=== PATIENT | female | born 1980 | race Caucasian/White ===

== ENCOUNTER 2020-06-28 12:55 | Emergency (ER) | payer OTHER, SELFPAY ==
[2020-06-28 13:23] VITALS: BP 141/80; PULSE 90; RESP 18; TEMP 36.7; O2SAT 100; BMI 22.6
--- NOTE | 2020-06-28 13:32 | HMH.EDUTC ---
[facility] – [place] Disposition Clinical Impression: Encounter for laboratory testing for COVID-19 virus Disposition: Home, Self-Care Condition on Discharge: Good Instructions: Preventing the Spread of Coronavirus Discharge Instructions Additional Instructions: *Monitor Temp, Over the counter Motrin or Tylenol as directed/as needed Tylenol every 4 hours and Motrin every 6 hours (as long as your family doctor has told you that you can take it) for fever or pain. and straight to ER if unable to lower temp less than 101.0 after medication given Follow up IMMEDIATELY for new or worsening symptoms or no Noticeable improvement over the next 48-72 hours. 911 for difficulty breathing or swallowing You was tested for today for COVID19 your test result should be back later this evening, you may call back later this evening to see if your test results are back and the result You was given a handout with instructions for Self Quarantine and Self isolation for while you wait on test results and what to do if they are positive Referrals: Christ Arthur [Primary Care Provider] - As needed Time of Disposition: 13:34 Medical Decision Making - Clifford Inquiry Pt receiving controlled substance: No Clifford was queried for this patient: No Vital Signs: 06/28/20 13:23 Temperature 98.1 F Temperature Source Oral Pulse Rate [Radial] 90 Respiratory Rate 18 Blood Pressure [Right Arm] 141/80 H Blood Pressure Mean [Right Arm] 100 Blood Pressure Source [Right Arm] Automatic Cuff Blood Pressure Position [Right Arm] Sitting 02 Sat by Pulse Oximetry 100 Oxygen Delivery Method Room Air Orders (Tests/Meds): ORDERS Category Date Time Status Covid-19 Nasal PCR ([facility]) Routine Lab 06/28/20 13:10 Received [facility] – [place] HPI - General Stated complaint: wants covid test for employ Time Seen by Provider: 06/28/20 13:32 Mode of Arrival: Ambulatory Source of Information: Patient Limitations: No Limitations Description of Symptoms (Recalled from Triage Doc. by RN): wants covid test. HEENT Symptoms (Recalled from RN notes): No Resp Symptoms (Recalled from RN notes): No Skin Symptoms (Recalled from RN notes): No MS Symptoms (Recalled from RN notes): No Functional Status (Recalled from RN notes): wnl - History of Present Illness Provider Complaint: Patient state that she is starting a new job in [place] and they required her to come and get a COVID test before she can start work Denies any symptoms or complaints - Related Data Allergies Allergy/AdvReac Type Severity Reaction Status Date / Time INGREDIENT: NO KNOWN - NO Allergy Unknown Uncoded 08/26/17 15:03 KNOWN DRUG ALLERGY - Worker's Comp Is this a Worker's Comp case?: No [facility] History - Hepatitis A Screen Drug use history?: No High risk sexual behaviors?: No History of sexually transmitted infection?: No Currently employed?: No Childcare worker?: No Do you have indoor plumbing?: Yes Do you have electricity?: Yes Attestation statement:: This patient has been screened for Hepatitis A risk factors. I have reviewed the patient's past medical history: Yes - Social History Alcohol Intake: never Occupational Status: employed ROS Obtained: Yes All systems reviewed & no additional complaints, Yes Systems reviewed as appropriate & no additional complaints - Constitutional Constitutional: Reports system reviewed and no additional complaints, except as docu, Denies body ache, Denies chills, Denies fever(s), Denies headache(s) - ENT Ears, Nose, Mouth, and Throat: Reports system reviewed and no additional complaints, except as docu, Denies nasal congestion, Denies nasal discharge, Denies sore throat - Cardiovascular Cardiovascular: Reports system reviewed and no additional complaints, except as docu - Respiratory Respiratory: Yes system reviewed and no additional complaints, except as docu, No cough - Gastrointestinal Gastrointestingal: Reports: system reviewed and no additional complaints, ex
[2020-06-28 13:50] VITALS: BP 141/80; PULSE 90; RESP 18; TEMP 36.7; O2SAT 100
== END 2020-06-28 13:51 | disposition home or self-care (01) ==
PROVIDERS: Emergency Provider Nurse Practitioner; PCP Pediatrics
DX: Z20.828 Contact with and (suspected) exposure to other viral communicable diseases (principal)
CPT/HCPCS: 99201; U0003

== ENCOUNTER 2020-08-17 13:17 | Emergency (ER) | payer OTHER, SELFPAY ==
[2020-08-17 13:40] VITALS: BP 133/89; PULSE 93; RESP 14; TEMP 36.2; O2SAT 98; BMI 22.6
--- NOTE | 2020-08-17 13:50 | HMH.EDUTC ---
[facility] – [place] Disposition Clinical Impression: Exposure to COVID-19 virus Disposition: Home, Self-Care Condition on Discharge: Good Instructions: Preventing the Spread of Coronavirus Discharge Instructions Additional Instructions: Drink plenty of fluids. Take tylenol for pain or fever. Return if you begin to have difficulty breathing. Follow up with your regular doctor. GO TO THE ER FOR ANY WORSENING SYMPTOMS Referrals: PCP,No [Primary Care Provider] - Time of Disposition: 14:03 Medical Decision Making - Medical Records Medical records reviewed: No: I reviewed the patient's medical records. - Clifford Inquiry Pt receiving controlled substance: No Vital Signs: 08/17/20 13:40 Temperature 97.2 F L Temperature Source Oral Pulse Rate [Right Brachial] 93 H Respiratory Rate 14 Blood Pressure [Right Arm] 133/89 Blood Pressure Mean [Right Arm] 103 Blood Pressure Source [Right Arm] Automatic Cuff Blood Pressure Position [Right Arm] Sitting 02 Sat by Pulse Oximetry 98 Oxygen Delivery Method Room Air Orders (Tests/Meds): ORDERS Category Date Time Status Covid-19 Nasal PCR Sendout Jose Routine Lab 08/17/20 13:35 Ordered [facility] – [place] HPI - General Stated complaint: possible covid exposure Time Seen by Provider: 08/17/20 13:50 - History of Present Illness Provider Complaint: She was exposed to covid-19 by her son having it. She denies any symptoms. - Related Data Allergies Allergy/AdvReac Type Severity Reaction Status Date / Time No Known Allergies Allergy Verified 08/17/20 13:56 [facility] History - Hepatitis A Screen Attestation statement:: This patient has been screened for Hepatitis A risk factors. I have reviewed the patient's past medical history: Yes - Social History Alcohol Intake: never Occupational Status: employed ROS Obtained: Yes All systems reviewed & no additional complaints - Constitutional Constitutional: Reports system reviewed and no additional complaints, except as docu - Eyes Eyes: Reports system reviewed and no additional complaints, except as docu - ENT Ears, Nose, Mouth, and Throat: Reports system reviewed and no additional complaints, except as docu - Cardiovascular Cardiovascular: Reports system reviewed and no additional complaints, except as docu - Respiratory Respiratory: Yes system reviewed and no additional complaints, except as docu - Gastrointestinal Gastrointestingal: Reports: system reviewed and no additional complaints, except as docu Physical Exam - General General appearance: alert, in no apparent distress - Head Head exam: atraumatic, normocephalic, normal inspection - Eye Eye exam: Present: normal appearance, PERRL, EOMI - ENT ENT exam: Present: normal exam, normal oropharynx, mucous membranes moist, TM's normal bilaterally, normal external ear exam - Neck Neck exam: Present: normal inspection, full ROM, trachea midline. Absent: meningismus, lymphadenopathy - Chest Chest inspection: Present: normal inspection, symmetric chest wall rise. Absent: tenderness - Respiratory Respiratory exam: Present: normal lung sounds bilaterally. Absent: respiratory distress - Cardiovascular Cardiovascular exam: Present: regular rate, normal rhythm. Absent: JVD - Abdominal Exam Abdominal exam: Present: soft, normal bowel sounds. Absent: distention, tenderness, guarding - Extremities Exam Extremities exam: Present: normal inspection, full ROM, normal capillary refill. Absent: calf tenderness - Back Exam Back exam: Present: normal inspection. Absent: tenderness - Neurological Exam Neurological exam: Present: alert, oriented X3 - Psychiatric Psychiatric exam: Present: normal affect, normal mood - Skin Skin exam: Present: warm, dry, intact, normal color - Lymphatic Lymphatic Findings: no adenopathy
[2020-08-17 14:13] VITALS: BP 133/89; PULSE 93; RESP 14; TEMP 36.2; O2SAT 98
[2020-08-19 10:52] LABS: Covid-19 Nasal PCR Sendout Lex Not Detected
== END 2020-08-17 14:16 | disposition home or self-care (01) ==
PROVIDERS: Emergency Provider Nurse Practitioner Family
DX: Z20.828 Contact with and (suspected) exposure to other viral communicable diseases (principal)
CPT/HCPCS: 99201; U0004

== ENCOUNTER 2021-06-13 16:30 | Emergency (ER) | payer OTHER, SELFPAY ==
[2021-06-13 16:30] VITALS: BP 149/95; PULSE 81; RESP 18; TEMP 37; O2SAT 99; BMI 22.6
--- NOTE | 2021-06-13 16:49 | HMH.EDUTC ---
[facility] [place] Disposition Clinical Impression: Encounter for laboratory testing for COVID-19 virus Headache Qualifiers: Headache type: unspecified Headache chronicity pattern: unspecified pattern Intractability: not intractable Qualified Code(s): R51.9 - Headache, unspecified Disposition: Home, Self-Care Condition on Discharge: Good Instructions: DI for COVID-19 (Suspected or Confirmed ), Preventing the Spread of Coronavirus Discharge Instructions Additional Instructions: Go home and rest Over the counter Motrin may help with headache pain Follow up with Family Doctor and return if needed Straight to ER if any life threatening symptoms Return if needed Referrals: Christ Arthur [Primary Care Provider] - As needed Time of Disposition: 17:12 Medical Decision Making - Clifford Inquiry Pt receiving controlled substance: No Clifford was queried for this patient: No Vital Signs: 06/13/21 16:30 06/13/21 16:58 Temperature 98.6 F 98.6 F Temperature Source Oral Pulse Rate 81 Pulse Rate [Right Brachial] 81 Respiratory Rate 18 18 Blood Pressure 149/95 H Blood Pressure [Right Arm] 149/95 H Blood Pressure Mean [Right Arm] 113 Blood Pressure Source [Right Arm] Automatic Cuff Blood Pressure Position [Right Arm] Sitting 02 Sat by Pulse Oximetry 99 Oxygen Delivery Method Room Air Orders (Tests/Meds): ED MEDICATIONS Discontinued Medications Generic Name Dose Route Start Last Admin Trade Name Sabina PRN Reason Stop Dose Admin Ketorolac Tromethamine 60 mg 06/13/21 16:52 06/13/21 16:56 Ketorolac 60mg/2ml Vial IM 06/13/21 16:53 60 mg ONCE ONE Administration Medical Decision Narrative: Patient states that she has had a tubal Patient states that headache is gone after medication and she is feeling much better [facility] [place] HPI - General Stated complaint: Headache x 3 days Time Seen by Provider: 06/13/21 16:49 Mode of Arrival: Ambulatory Source of Information: Patient Limitations: No Limitations Description of Symptoms (Recalled from Triage Doc. by RN): PATIENT C/O WEAKNESS AND HEADACHE X 3 DAYS HEENT Symptoms (Recalled from RN notes): Yes Resp Symptoms (Recalled from RN notes): No Skin Symptoms (Recalled from RN notes): No MS Symptoms (Recalled from RN notes): No Functional Status (Recalled from RN notes): WNL - History of Present Illness Provider Complaint: Patient states that she is not sure if she has a migraine or she is getting sick States that she works at [employer] and she has had a headache for the last 3 days States that she has been taking Tylenol and it helps some but then the headache will come right back States that she has been feeling tired and achy wanted to get tested for COVID - Related Data Allergies Allergy/AdvReac Type Severity Reaction Status Date / Time No Known Allergies Allergy Verified 08/17/20 13:56 - Worker's Comp Is this a Worker's Comp case?: No [facility] History - Hepatitis A Screen Drug use history?: No High risk sexual behaviors?: No History of sexually transmitted infection?: No Currently employed?: No Childcare worker?: No Do you have indoor plumbing?: Yes Do you have electricity?: Yes Attestation statement:: This patient has been screened for Hepatitis A risk factors. I have reviewed the patient's past medical history: Yes - Social History Alcohol Intake: never Occupational Status: other ROS Obtained: Yes All systems reviewed & no additional complaints, Yes Systems reviewed as appropriate & no additional complaints - Constitutional Constitutional: Reports system reviewed and no additional complaints, except as docu, Reports body ache, Reports chills, Reports fatigue, Denies fever(s), Reports headache(s) - Eyes Eyes: Reports system reviewed and no additional complaints, except as docu, Denies blurry vision, Denies decreased night vision, Denies sensitivity to light, Denies eye pain, Denies photophobia - ENT Ears, Nose, Mouth, and Throat: Reports system
[2021-06-13 16:58] VITALS: BP 149/95; PULSE 81; RESP 18; TEMP 37; O2SAT 99
== END 2021-06-13 17:18 | disposition home or self-care (01) ==
PROVIDERS: Emergency Provider Nurse Practitioner; PCP Pediatrics
DX: Z20.822 Contact with and (suspected) exposure to COVID-19 (principal); R51.9 Headache, unspecified
CPT/HCPCS: 96372; 99202; C9803; G0463; U0003; U0005

== ENCOUNTER 2021-07-28 11:31 | Emergency (ER) | payer OTHER, SELFPAY ==
[2021-07-28 11:48] VITALS: BP 145/88; PULSE 94; RESP 18; TEMP 36.9; O2SAT 98; BMI 24.2
--- NOTE | 2021-07-28 12:33 | HMH.EDUTC ---
[facility] [place] – [place] Disposition Clinical Impression: Shingles Qualifiers: Herpes zoster complications: without complications Qualified Code(s): B02.9 - Zoster without complications Disposition: Home, Self-Care Condition on Discharge: Good Instructions: Shingles, DI for Shingles Additional Instructions: Drink plenty of fluids. Take tylenol or ibuprofen for pain or fever. Take the medications as directed. Follow up with your regular doctor. GO TO THE ER FOR ANY WORSENING SYMPTOMS Prescriptions: Ibuprofen [Ibuprofen 800mg Tablet] 800 mg PO Q8HP PRN #30 tab PRN Reason: Moderate Pain Transmission Status: Received by [id number] Acyclovir 800 mg PO 5XDAY 7 Days #35 tab Transmission Status: Received by [id number] predniSONE [Deltasone 10mg tablet] 10 mg PO DAILY 9 Days #21 tab Transmission Status: Received by [id number] Referrals: Provider,Referral, MD [Primary Care Provider] - Forms: Work/School Release Time of Disposition: 12:39 Medical Decision Making - Medical Records Medical records reviewed: No: I reviewed the patient's medical records. - Clifford Inquiry Pt receiving controlled substance: No Vital Signs: 07/28/21 11:48 07/28/21 12:37 Temperature 98.5 F 98.5 F Temperature Source Oral Pulse Rate 94 H Pulse Rate [Left] 94 H Respiratory Rate 18 18 Blood Pressure 145/88 H Blood Pressure [Right Arm] 145/88 H Blood Pressure Mean [Right Arm] 107 02 Sat by Pulse Oximetry 98 [facility] [place] [facility] [place] HPI - General Stated complaint: possible shingles Time Seen by Provider: 07/28/21 12:33 Mode of Arrival: Ambulatory Source of Information: Patient Limitations: No Limitations Description of Symptoms (Recalled from Triage Doc. by RN): pt presents with a painful rash on L arm down to ribs and under L breast HEENT Symptoms (Recalled from RN notes): No Resp Symptoms (Recalled from RN notes): No Skin Symptoms (Recalled from RN notes): Yes (rash on L arm down to ribs and under L breast) MS Symptoms (Recalled from RN notes): No Functional Status (Recalled from RN notes): na - History of Present Illness Provider Complaint: She states that for the past 3 days she has felt irritation on the left side of her upper back around to the side of her chest. Yesterday she began having a rash in that area. - Related Data Previous Rx's Medication Instructions Recorded Acyclovir 800 mg PO 5XDAY 7 Days #35 tab 07/28/21 Ibuprofen [Ibuprofen 800mg 800 mg PO Q8HP PRN #30 tab 07/28/21 Tablet] predniSONE [Deltasone 10mg tablet] 10 mg PO DAILY 9 Days #21 tab 07/28/21 Allergies Allergy/AdvReac Type Severity Reaction Status Date / Time No Known Allergies Allergy Verified 08/17/20 13:56 - Worker's Comp Is this a Worker's Comp case?: No [facility] History - Hepatitis A Screen Drug use history?: No High risk sexual behaviors?: No History of sexually transmitted infection?: No Currently employed?: No Childcare worker?: No Do you have indoor plumbing?: Yes Do you have electricity?: Yes Attestation statement:: This patient has been screened for Hepatitis A risk factors. I have reviewed the patient's past medical history: Yes - Social History Alcohol Intake: never Occupational Status: other ROS Obtained: Yes All systems reviewed & no additional complaints - Constitutional Constitutional: Reports chills, Denies fever(s), Reports poor appetite, Reports malaise - Eyes Eyes: Denies eye discharge - ENT Ears, Nose, Mouth, and Throat: Denies dizziness, Denies otalgia, Denies sore throat - Cardiovascular Cardiovascular: Denies chest pain - Respiratory Respiratory: Denies chest congestion, Denies cough, Denies dyspnea, Denies stridor, Denies wheezing - Gastrointestinal Gastrointestingal: Denies: abdominal pain, diarrhea, nausea, vomiting - Genitourinary Female Genitourinary: Denies dysuria, Denies urinary frequency, Denies urinary incontinence, Denies urinary hesitancy, Den
[2021-07-28 12:37] VITALS: BP 145/88; PULSE 94; RESP 18; TEMP 36.9
== END 2021-07-28 12:44 | disposition home or self-care (01) ==
PROVIDERS: Emergency Provider Nurse Practitioner Family
DX: B02.9 Zoster without complications (principal)
CPT/HCPCS: 99202; G0463

== ENCOUNTER 2021-10-25 09:04 | Emergency (ER) | payer OTHER, SELFPAY ==
[2021-10-25 09:30] VITALS: BMI 24.0
--- NOTE | 2021-10-25 09:38 | HMH.EDGENADL ---
ED Disposition Clinical Impression: Excessive vaginal bleeding Disposition: Home, Self-Care Condition on Discharge: Good Instructions: DI for Vaginal Bleeding Additional Instructions: See Dr. Santoyo in his office tomorrow at 9:20 AM. You must wear a mask in the office. Referrals: Christ Arthur [Primary Care Provider] - - Critical Care Critical Care Time: No Attestation: On 10/25/21, the high probability of a clinically significant, sudden or life threatening deterioration of the following system(s) required my full and direct attention, intervention and personal management. The time I documented below is in addition to time spent performing reported procedures but includes the following listed in this critical care notation. Medical Decision Making - Clifford Inquiry Pt receiving controlled substance: No Vital Signs: 10/25/21 09:39 Temperature 98.7 F Temperature Source Oral Pulse Rate [Left Radial] 80 Respiratory Rate 18 Blood Pressure [Right Arm] 118/78 Blood Pressure Mean [Right Arm] 91 Blood Pressure Source [Right Arm] Automatic Cuff Blood Pressure Position [Right Arm] Sitting 02 Sat by Pulse Oximetry 99 Oxygen Delivery Method Room Air - Lab Data Lab Results 10/25/21 09:33: Urine Color Yellow, Urine Appearance Clear, Urine pH 5.5, Ur Specific [place] >= 1.030, Urine Protein 2+, Urine Glucose (UA) Negative, Urine Ketones Negative, Urine Blood 3+, Urine Nitrate Positive, Urine Bilirubin Negative, Urine Urobilinogen 4.0, Ur Leukocyte Esterase Negative, Urine RBC Tntc, Urine WBC 3-5, Ur Squamous Epith Cells Occasional, Amorphous Sediment Trace, Urine Mucus Trace 10/25/21 09:49: WBC 6.0, RBC 4.03 L, Hgb 13.7, Hct 39.7, MCV 98.4, MCH 34.1 H, MCHC 34.6, RDW 12.7, Plt Count 260, MPV 7.3 L, Neut % (Auto) 68.9, Lymph % (Auto) 23.6, [place] % (Auto) 5.1, Eos % (Auto) 1.7, Baso % (Auto) 0.6, Neut # (Auto) 4.1, Lymph # (Auto) 1.4, [place] # (Auto) 0.3, Eos # (Auto) 0.1, Baso # (Auto) 0.0 10/25/21 09:49: Sodium 137, Potassium 3.6, Chloride 107, Carbon Dioxide 26, Anion Gap 7.6, BUN 11, Creatinine 0.80, Estimated Creat Clear 97, Estimated GFR 78, Est GFR ( Amer) 95, Glucose 96, Calcium 7.9 L, Total Bilirubin 0.5, AST 42 H, ALT 38, Alkaline Phosphatase 137 H, Total Protein 7.0, Albumin 4.0, Globulin 3.0, Albumin/Globulin Ratio 1.3 10/25/21 09:49: Serum HCG, Qual Negative Result diagrams: 10/25/21 09:49 10/25/21 09:49 Orders (Tests/Meds): ED MEDICATIONS Discontinued Medications Generic Name Dose Route Start Last Admin Trade Name Freq PRN Reason Stop Dose Admin Medroxyprogesterone Acetate 20 mg 10/25/21 11:25 Medroxyprogesterone Acetate 2.5mg Tablet PO 10/25/21 11:26 ONCE ONE ORDERS Category Date Time Status US transvaginal Stat Exams 10/25/21 10:40 Taken Thyroid Panel Stat Lab 10/25/21 09:49 Received - US Data US Images: Pelvis Findings Narrative: As per [facility] procedure, ultrasound report received from counter intelligence technician: Uterus upper limits of normal. Endometrium normal. Nabothian cysts of cervix. Hemorrhagic cyst left ovary. Actively bleeding. - Physician Consults Physician Consulted: Natanael Time: 11:20 Reason -: Gynocological Eval/Care Comment/Response: Give patient Provera 20 mg p.o. x1, have patient see him tomorrow in his office at 9:20 AM. General Adult HPI - General Stated complaint: female issues Time Seen by Provider: 10/25/21 09:38 - History of Present Illness HPI narrative: Complains of heavy vaginal bleeding that began yesterday. Denies having any pain. Passing clots. Using 1 pad per hour. Has never had vaginal bleeding is heavy. Last normal menses was in September 29. 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 Her glazier stained glass is Dr. Faizan Santoyo in [place], her oncologist surgeon is Dr. Madrigal at [facility]. She says she called Dr. Madrigal today but could not be seen for 4 weeks an
[2021-10-25 09:39] VITALS: BP 118/78; PULSE 80; RESP 18; TEMP 37.1; O2SAT 99; BMI 24.0
[2021-10-25 09:51] LABS: Microscopic, Urine URINE MICROSCOPIC (MICROSCOPIC)
[2021-10-25 09:59] LABS: Appearance,Urine CLEAR (Clear); Bilirubin,Urine Negative (Negative); Blood, Urine 3+ (Negative); Color,Urine YELLOW (Yellow); Glucose,Urine (UA) Negative (Negative); Ketones,Urine Negative (Negative); Leukocyte Esterase,Urine Negative (Negative); Nitrate,Urine POSITIVE (Negative); PH,Urine 5.5 (5.0-8.5); Protein,Urine 2+ (Negative); Specific Gravity, Urine >= 1.030 (1.005-1.030)
[2021-10-25 10:14] LABS: Basophils % 0.6 % (0.1-2.0); Eosinophils # 0.1 K/mm3 (0.0-0.4); Eosinophils % 1.7 % (0.1-12.0); Hematocrit 39.7 % (37.0-47.0); Hemoglobin 13.7 g/dL (12.2-16.2); Lymphocytes # 1.4 K/mm3 (0.7-4.5); Lymphocytes % 23.6 % (10-50); Mean Corpuscular HGB Conc 34.6 g/dL (31.8-35.4); Mean Corpuscular Hemoglobin 34.1 pg (27.0-31.2); Mean Corpuscular Volume 98.4 fl (81-99); Mean Platelet Volume 7.3 fl (7.4-10.4); Monocytes # 0.3 K/mm3 (0.1-1.0); Monocytes % 5.1 % (1.7-9.3); Neutrophils # 4.1 K/mm3 (1.8-7.8); Neutrophils % 68.9 % (37.0-80.0); Platelet Count 260 K/mm3 (142-424); Red Blood Count 4.03 M/mm3 (4.20-5.40); Red Cell Distribution Width 12.7 % (11.5-17.5)
[2021-10-25 10:15] LABS: Amorphous Sediment,Urine Trace /lpf; Mucus,Urine Trace /lpf; RBC,Urine TNTC #/hpf (0-3); Squamous Epithelial Cell,Urine Occasional #/hpf (0-5)
[2021-10-25 10:22] LABS: Chloride 107 mmol/L (98-107); Potassium 3.6 mmoL/L (3.5-5.1); Sodium 137 mmol/L (136-145)
[2021-10-25 10:25] LABS: Alanine Aminotransferase 38 U/L (12-78); Albumin/Globulin Ratio 1.3 (1.1-1.8); Alkaline Phosphatase 137 U/L (38-126); Anion Gap 7.6 mEq/L (5-15); Aspartate Amino Transferase 42 U/L (14-36); Bilirubin,Total 0.5 mg/dl (0.2-1.3); Blood Urea Nitrogen 11 mg/dl (7-17); Carbon Dioxide 26 mmol/L (22.0-30.0); Creatinine Clearance Estimated 97 mL/min (50-200); Estimated Glomerular Filt Rate 78 ml/min (>60); GFR (African American) 95 ML/MIN (>60)
[2021-10-25 10:26] LABS: Calcium 7.9 mg/dl (8.4-10.2); Glucose 96 mg/dl (74-100)
[2021-10-25 10:39] LABS: HCG Qualitative, Serum Negative (Negative)
--- NOTE | 2021-10-25 10:40 | US_ITS ---
FINAL REPORT CLINICAL HISTORY: heavy vaginal bleeding-- x 2 days-- pt had rt ov removed FINDINGS: Transvaginal sonographic images of the pelvis were obtained. The uterus measures 9.3 x 4.8 x 6.4. The endometrium measures 5 mm, which is within normal limits. No uterine mass is identified. The right ovary is surgically absent. The left ovary measures 5.1 x 4.0 x 4.0 cm in length. There is a complex cystic mass in the left ovary measuring 3.7 cm which may represent a complex cyst or endometrioma. There is no significant free fluid. IMPRESSION: Complex cystic mass in the left ovary may represent a complex cyst or endometrioma. Reviewed, Interpreted and Dictated by Juanpablo Cordova III, MD Transcribed by Laura Vaughn Authenticated by Juanpablo Cordova III, MD on 10/25/2021 01:44:33 PM [facility]
--- NOTE | 2021-10-25 11:17 | PC.NURSE ---
calling dr nicola joya md to speak with
--- NOTE | 2021-10-25 11:18 | PC.NURSE ---
speaking to dr petersen
[2021-10-25 11:46] VITALS: BP 121/74; PULSE 76; RESP 17; TEMP 37; O2SAT 97
[2021-10-25 11:49] LABS: Triiodothryronine (T3) Uptake 30 % (23.5-40.5)
[2021-10-25 11:50] LABS: T4 (Thyroxine) 10.1 ug/dl (5.53-11.0)
[2021-10-25 12:03] LABS: Thyroid Stimulating Hormone 3.06 uIU/mL (0.465-4.68)
== END 2021-10-25 11:52 | disposition home or self-care (01) ==
PROVIDERS: Emergency Provider Emergency Medicine; PCP Pediatrics
DX: N92.4 Excessive bleeding in the premenopausal period (principal)
CPT/HCPCS: 76830; 80053; 81001; 84436; 84443; 84479; 84703; 85025; 99283

== ENCOUNTER 2021-12-19 11:26 | Emergency (ER) | payer OTHER, SELFPAY ==
[2021-12-19 11:51] VITALS: BP 121/74; PULSE 88; RESP 19; TEMP 36.9; O2SAT 95; BMI 24.0
--- NOTE | 2021-12-19 12:06 | HMH.EDUTC ---
[facility] Disposition Clinical Impression: Tendinopathy of left shoulder Left shoulder pain Qualifiers: Chronicity: acute Qualified Code(s): M25.512 - Pain in left shoulder Disposition: Home, Self-Care Condition on Discharge: Good Instructions: DI for Shoulder Tendinopathy Additional Instructions: Go home and rest. It would be best if you rested tomorrow too. No heavy lifting with your right arm for the next few days. Take the oral medications as directed. Follow up with your regular doctor. GO TO THE ER FOR ANY WORSENING SYMPTOMS OR CONCERN, ESPECIALLY BOWEL OR BLADDER ISSUES, SADDLE AREA NUMBNESS, FEVER, ETC Rest the extremity, Elevate the extremity as tolerated while you are resting. Prescriptions: methylPREDNISolone [Medrol] 4 mg PO DIRECTED 6 Days #21 packet Transmission Status: Pending to [id number] Referrals: Christ Arthur [Primary Care Provider] - Musa Boyd MD [Staff Physician] - Forms: Work/School Release Time of Disposition: 12:29 Medical Decision Making - Medical Records Medical records reviewed: No: I reviewed the patient's medical records. - Clifford Inquiry Pt receiving controlled substance: No Vital Signs: 12/19/21 11:51 Temperature 98.4 F Temperature Source Oral Pulse Rate [Left] 88 Respiratory Rate 19 Blood Pressure [Right Arm] 121/74 Blood Pressure Mean [Right Arm] 89 02 Sat by Pulse Oximetry 95 [facility] HPI - General Stated complaint: lt shoulder pain Time Seen by Provider: 12/19/21 12:06 Mode of Arrival: Ambulatory Source of Information: Patient Limitations: No Limitations Description of Symptoms (Recalled from Triage Doc. by RN): pt c/o L shoulder pain. pt states she recently started a job and mops alot. pt believes she has irritated it from the new repetitive activity. HEENT Symptoms (Recalled from RN notes): No Resp Symptoms (Recalled from RN notes): No Skin Symptoms (Recalled from RN notes): No MS Symptoms (Recalled from RN notes): Yes Functional Status (Recalled from RN notes): wnl - History of Present Illness Provider Complaint: She states that for the past 3 days she has had right elbow and shoulder pain and stiffness. She denies any recent injury. She thinks that she has been moping and raking and it has irritated her shoulder. - Related Data Previous Rx's Medication Instructions Recorded Acyclovir 800 mg PO 5XDAY 7 Days #35 tab 07/28/21 Ibuprofen [Ibuprofen 800mg 800 mg PO Q8HP PRN #30 tab 07/28/21 Tablet] predniSONE [Deltasone 10mg tablet] 10 mg PO DAILY 9 Days #21 tab 07/28/21 methylPREDNISolone [Medrol] 4 mg PO DIRECTED 6 Days #21 12/19/21 packet Allergies Allergy/AdvReac Type Severity Reaction Status Date / Time No Known Allergies Allergy Verified 08/17/20 13:56 - Worker's Comp Is this a Worker's Comp case?: No [facility] History - Hepatitis A Screen Drug use history?: No High risk sexual behaviors?: No History of sexually transmitted infection?: No Currently employed?: No Childcare worker?: No Do you have indoor plumbing?: Yes Do you have electricity?: Yes Attestation statement:: This patient has been screened for Hepatitis A risk factors. I have reviewed the patient's past medical history: Yes - Social History Alcohol Intake: never Occupational Status: other ROS Obtained: Yes All systems reviewed & no additional complaints - Constitutional Constitutional: Reports as per HPI - Eyes Eyes: Denies eye discharge - ENT Ears, Nose, Mouth, and Throat: Reports as per HPI - Cardiovascular Cardiovascular: Denies chest pain - Respiratory Respiratory: Denies shortness of breath - Gastrointestinal Gastrointestingal: Reports: as per HPI Physical Exam - General General appearance: alert, in no apparent distress - Head Head exam: atraumatic, normocephalic, normal inspection - Eye Eye exam: Present: normal appearance, PERRL, EOMI - ENT ENT exam: Present: normal exam, nor
[2021-12-19 12:32] VITALS: BP 121/74; PULSE 88; RESP 19; TEMP 36.9
== END 2021-12-19 12:33 | disposition home or self-care (01) ==
PROVIDERS: Emergency Provider Nurse Practitioner Family; PCP Pediatrics
DX: M75.02 Adhesive capsulitis of left shoulder (principal); X50.3XXA Overexertion from repetitive movements, initial encounter
CPT/HCPCS: 99212; G0463

== ENCOUNTER 2022-03-26 08:29 | Emergency (ER) | payer OTHER, SELFPAY ==
[2022-03-26 08:30] VITALS: BP 131/85; PULSE 77; RESP 16; TEMP 36.8; O2SAT 99; BMI 21.6
--- NOTE | 2022-03-26 08:54 | PC.NURSE ---
Notified radiology of xray order; spoke with Fadia
--- NOTE | 2022-03-26 08:54 | XR_ITS ---
FINAL REPORT CLINICAL HISTORY: pain FINDINGS: RIGHT KNEE Two views of the right knee were obtained. There is no evidence of fracture or dislocation. The bony alignment is normal. The joint spaces are preserved. There is no evidence of joint effusion. No localized soft tissue abnormality is identified. IMPRESSION: No acute abnormality identified. Reviewed, Interpreted and Dictated by Juanpablo Cordova III, MD Transcribed by Nandini Betts Authenticated and [facility]
[2022-03-26 09:00] VITALS: BP 124/84; PULSE 67; O2SAT 99
--- NOTE | 2022-03-26 09:01 | HMH.EDGENADL ---
ED Disposition Clinical Impression: Knee strain Qualifiers: Encounter type: initial encounter Laterality: right Qualified Code(s): S86.911A - Strain of unspecified muscle(s) and tendon(s) at lower leg level, right leg, initial encounter Strain of calf muscle Qualifiers: Encounter type: initial encounter Laterality: right Qualified Code(s): S86.811A - Strain of other muscle(s) and tendon(s) at lower leg level, right leg, initial encounter Disposition: Home, Self-Care Condition on Discharge: Good Instructions: DI for Calf Muscle Strain, DI for Knee Pain Additional Instructions: Continue ice 20 minutes 4-5 times a day. Ibuprofen as prescribed. Follow-up with orthopedics, Dr. Boyd, call for appointment. Prescriptions: Ibuprofen [Ibuprofen 600mg Tab] 600 mg PO Q6HP PRN #20 tab PRN Reason: Moderate Pain Transmission Status: Pending to [id number] Referrals: Christ Arthur [Primary Care Provider] - Musa Boyd MD [Staff Physician] - Forms: Work/School Release - Critical Care Critical Care Time: No Attestation: On , the high probability of a clinically significant, sudden or life threatening deterioration of the following system(s) required my full and direct attention, intervention and personal management. The time I documented below is in addition to time spent performing reported procedures but includes the following listed in this critical care notation. Medical Decision Making - Clifford Inquiry Pt receiving controlled substance: No Vital Signs: 03/26/22 08:30 03/26/22 09:00 03/26/22 10:00 Temperature 98.2 F Temperature Source Oral Pulse Rate 67 65 Pulse Rate [Left Radial] 77 Respiratory Rate 16 Blood Pressure 124/84 110/67 Blood Pressure [Right Arm] 131/85 Blood Pressure Mean 99 81 Blood Pressure Mean [Right Arm] 100 Blood Pressure Source [Right Arm] Automatic Cuff Blood Pressure Position [Right Arm] Sitting 02 Sat by Pulse Oximetry 99 99 96 Oxygen Delivery Method Room Air Orders (Tests/Meds): ORDERS Category Date Time Status Knee XR right 2 views [XR knee RT 2V] Stat Exams 03/26/22 08:54 Taken Tibia/fibula XR right 2 views [XR tibia fibula RT 2V] Exams 03/26/22 09:06 Taken Stat - Radiology Data #1 Image(s): Knee, Tib/Fib Image Reviewed: Yes I reviewed the patient's radiology image Preliminary Findings: Normal/NAD - US Data US Images: Lower Extremity Findings Narrative: As per [facility] procedure, doppler report received from visitor services technician: Negative Medical Decision Narrative: No findings of DVT on Doppler. She has musculoskeletal knee and calf pain. She says it is impairing her ability to work. 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 We discussed work restrictions. She declines restricted work such as sitting job only and request that I just give her a note to be off work today. She will be given orthopedic referral. Continue ice. Ibuprofen as prescribed. General Adult HPI - General Chief complaint: PAIN Stated complaint: Right knee pain Time Seen by Provider: 03/26/22 09:02 Mode of Arrival: Ambulatory Limitations: No Limitations Description of Symptoms (Recalled from ER Triage Doc. by RN): c/o right knee pain and back calf pain that started . Pt started working at [employer] and walking more than usual and she noticed it hurting after this. Denies any injury - History of Present Illness HPI narrative: 5-day history of pain in her right knee and right calf. Right knee feels a little swollen. Her calf feels tight, but no swelling of the lower leg noted. No injury. She recently started a job with [employer] and has been doing a lot of physical activity. No previous knee problems. She has used ice, no medications taken. No recent surgery, travel, hospitalizations. No history of thromboembolic disease. - Related Data Previous Rx's Medication Instructions Recorded Acycl
--- NOTE | 2022-03-26 09:03 | PC.NURSE ---
ED MD AT BEDSIDE FOR EVALUATION
--- NOTE | 2022-03-26 09:06 | XR_ITS ---
FINAL REPORT CLINICAL HISTORY: pain FINDINGS: RIGHT TIBIA FIBULA Two views were obtained. There is no acute fracture or dislocation. The joint spaces appear normal. No soft tissue abnormality is identified. IMPRESSION: No acute process. Reviewed, Interpreted and Dictated by Juanpablo Cordova III, MD Transcribed by Lu Sinha Authenticated and . [facility]
--- NOTE | 2022-03-26 09:06 | CA_ITS ---
FINAL REPORT TECHNIQUE: Color Doppler, duplex Doppler and compression sonography of the right lower extremity venous system was performed. CLINICAL HISTORY: calf pain, Ant/mediallower knee pain after starting [employer] job FINDINGS: There is no evidence of deep venous thrombosis from the level of the groin to the calf. The veins are patent and compressible. IMPRESSION: No evidence of deep venous thrombosis right lower extremity. Reviewed, Interpreted and Dictated by Juanpablo Cordova III, MD Transcribed by Nandini Betts Authenticated and [facility]
--- NOTE | 2022-03-26 09:07 | PC.NURSE ---
pt ambulatory to xray with rehabilitation tech without complications
--- NOTE | 2022-03-26 09:14 | PC.NURSE ---
pt ambulatory back over to xray for tib/fib views; no complications
--- NOTE | 2022-03-26 09:16 | PC.NURSE ---
pt back to ED room 10. pt aware she is awaiting to get a venous doppler scan. guitar technician is aware of order
--- NOTE | 2022-03-26 09:20 | PC.NURSE ---
echo lab here for doppler
--- NOTE | 2022-03-26 09:28 | PC.NURSE ---
negative doppler per tech
[2022-03-26 10:00] VITALS: BP 110/67; PULSE 65; O2SAT 96
--- NOTE | 2022-03-26 10:06 | PC.NURSE ---
Rounded on patient; patient aware that we are still waiting on imaging scans to be read by Radiologist. She has no needs at this time. Pt is resting on bed.
--- NOTE | 2022-03-26 10:13 | PC.NURSE ---
ED MD AT BEDSIDE TO [facility] AND UPDATE ON POC.
[2022-03-26 10:21] VITALS: BP 110/67; PULSE 65; RESP 16; TEMP 36.8; O2SAT 99
[2022-03-26 10:23] VITALS: BP 110/67; PULSE 62; RESP 18; TEMP 36.7; O2SAT 100
== END 2022-03-26 10:25 | disposition home or self-care (01) ==
PROVIDERS: Emergency Provider Emergency Medicine; PCP Pediatrics
DX: S86.911A Strain of unspecified muscle(s) and tendon(s) at lower leg level, right leg, initial encounter (principal); S86.811A Strain of other muscle(s) and tendon(s) at lower leg level, right leg, initial encounter
CPT/HCPCS: 73560; 73590; 93971; 99284

== ENCOUNTER 2024-06-20 15:41 | Emergency (ER) | payer OTHER, SELFPAY ==
[2024-06-20 16:40] VITALS: BP 147/89; PULSE 95; RESP 20; TEMP 36.8; O2SAT 98; BMI 24.9
--- NOTE | 2024-06-20 17:15 | ED_ITS ---
Discharge Plan Disposition Patient Disposition: Home, Self-Care Prescriptions Prescriptions: No Action No Known Home Medications Referrals Follow up/Referrals: Provider,Referral, MD [Primary Care Provider] - See instructions Activity Restrictions/Add. Instructions Additional Instructions/Restrictions: Talk to family doctor regarding this visit to the emergency talk to your family doctor regarding this visit to the emergency department and right sided thyroid nodule. TSH today was 39, T4 6.4. This is concerning for subclinical hypothyroidism as well. Talk to your family doctor about ultrasound of your thyroid for further definitive diagnosis.If you have any worsening of your condition or any other concerning signs or symptoms, return to the emergency department or your primary care doctor for further evaluation. Clinical Impressions Clinical Impression: Cold thyroid nodule, Subclinical hypothyroidism Print Language Print Language: Kiswahili Discharge ED Provider: Cresencio Betancur [facility] HPI General Chief complaint: Recheck/Abnormal Lab/Rx Stated complaint: knot on throat Mode of Arrival: Ambulatory Source of Information: Patient Limitations: No Limitations Time Seen by Provider: 06/20/24 17:15 Description of Symptoms (Recalled from Triage Doc. by RN): PATIENT C/O LUMP TO RIGHT SIDE OF NECK/THROAT AREA THAT SHE NOTICED THIS MORNING HEENT Symptoms (Recalled from RN notes): Yes Resp Symptoms (Recalled from RN notes): No Skin Symptoms (Recalled from RN notes): No MS Symptoms (Recalled from RN notes): No Functional Status (Recalled from RN notes): WNL History of Present Illness Provider Complaint: Patient states she woke up this morning and noticed it felt weird when she swallowed and hurt a little bit States that she felt her neck and noticed she had a hard lump on the side of her neck beside her rodriguez apple that she hasnt noticed States that she notices it more if she leans her head back it just feels uncomfortable Denies voice changes, states she can eat ok but hurts sometimes and feels weird when she swallows Related Data Home Medications ?Medication ?Instructions ?Recorded ?Confirmed No Known Home Medications 06/20/24 06/20/24 Allergies Allergy/AdvReac Type Severity Reaction Status Date / Time No Known Allergies Allergy Verified 06/20/24 17:36 Worker's Comp Is this a Worker's Comp case?: No [facility] Disclaimer: The information contained in this section may have been updated after the patient was seen, as this information can be updated by other users. Surgical History (Updated 06/20/24 @ 16:50 by Nathalia Wheeler RN) History of hysterectomy Social History Smoking Status: Current every day smoker alcohol intake: never current occupational status: other Travel in the last 8 weeks: None ROS Obtained: Yes All systems reviewed & no additional complaints except as documented and Yes Systems reviewed as appropriate & no additional complaints except as documented Constitutional Constitutional: Reports system reviewed and no additional complaints, except as documented and Reports as per HPI ENT Ears, Nose, Mouth, and Throat: Reports system reviewed and no additional complaints, except as documented and Reports as per HPI Comments: swollen area on right side of neck Cardiovascular Cardiovascular: Reports system reviewed and no additional complaints, except as documented and Reports as per HPI Respiratory Respiratory: Reports system reviewed and no additional complaints, except as documented and Reports as per HPI Gastrointestinal Gastrointestingal: Reports system reviewed and no additional complaints, except as documented and as per HPI Physical Exam General General appearance: alert and in no apparent distress Neck Neck exam: Present tenderness Expanded Neck Exam Neck image: 2 1. swollen hard area noted no redness, states noticed it this am Respiratory Respiratory exam: Present normal lung sounds bilaterally; Absent respiratory distress or wheezes Cardiovascular Cardiovascular exam: Present regular rate, normal rhythm and normal heart sounds Neurological Exam Neurological exam: Present alert, oriented X3 and normal gait Medical Decision Making Medical Records Screening: Per USPSTF and CDC recommendations, given the prevalence of disease in our region, it is our hospital?s policy to screen for HIV and viral Hepatitis for all patients aged 18 and over and those with ongoing risk factors. Clifford Inquiry Pt receiving controlled substance: No Clifford was queried for this patient: No Vital Signs: 06/20/24 16:40 Temperature 98.3 F Temperature Source Oral Pulse Rate [Left Brachial] 95 H Respiratory Rate 20 Blood Pressure [Left Arm] 147/89 H Blood Pressure Mean [Left Arm] 108 Blood Pressure Source [Left Arm] Automatic Cuff Blood Pressure Position [Left Arm] Sitting 02 Sat by Pulse Oximetry 98 Oxygen Delivery Method Room Air Lab Data 06/20/24 17:33 06/20/24 17:33 Medical Decision Narrative: Patient states she noticed large lump like area on the right side of her neck this am when it felt weird when she swallowed and she touched her neck, States she hadnt noticed area before, denies known thyroid issues denies voice changes, Denies sore throat and denies trouble eating just uncomfortable at times when she swallows or bends her head back, discussed with patient and will transfer to the ED for furhter work up and evaluation
[2024-06-20 17:27] VITALS: BP 146/105; PULSE 101; O2SAT 98
[2024-06-20 17:30] VITALS: BP 146/105; BP 147/103; PULSE 104; PULSE 96; RESP 14; TEMP 36.8; O2SAT 99; BMI 24.8
--- NOTE | 2024-06-20 17:32 | CT_ITS ---
PROCEDURE INFORMATION: Exam: CT Neck With Contrast Exam date and time: 06/20/2024 5:48 PM Age: 44 years old Clinical indication: Mass, lump, or swelling in neck; Right; Additional info: Right thyroid nodule and submental lad. R/O malig TECHNIQUE: Imaging protocol: Computed tomography of the neck with contrast. Radiation optimization: All CT scans at this facility use at least one of these dose optimization techniques: automated exposure control; mA and/or kV adjustment per patient size (includes targeted exams where dose is matched to clinical indication); or iterative reconstruction. Contrast material: ISOVUE; Contrast volume: 75 ml; Contrast route: IV; COMPARISON: No relevant prior studies available. FINDINGS: Salivary glands: Normal. Glands are normal in size. Pharynx: Unremarkable. No significant tonsillar enlargement. Prevertebral and retropharyngeal spaces: Unremarkable. Larynx: Unremarkable. Epiglottis is normal. Thyroid: Enlarged and heterogeneous thyroid gland. Trachea: Visualized trachea is unremarkable. Lungs: Unremarkable as visualized. Lymph nodes: No pathologically enlarged lymph nodes by short axis measurement criteria. 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 This is to the left of midline. Soft tissues: Unremarkable. No significant soft tissue swelling. IMPRESSION: 1. Enlarged and heterogeneous thyroid gland. 2. 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 3. No pathologic lymphadenopathy.
--- NOTE | 2024-06-20 17:46 | HMH.EDGENADL ---
Discharge Plan Disposition Patient Disposition: Home, Self-Care Prescriptions Prescriptions: No Action No Known Home Medications Referrals Follow up/Referrals: Provider,Referral, MD [Primary Care Provider] - See instructions Activity Restrictions/Add. Instructions Additional Instructions/Restrictions: Talk to family doctor regarding this visit to the emergency talk to your family doctor regarding this visit to the emergency department and right sided thyroid nodule. TSH today was 39, T4 6.4. This is concerning for subclinical hypothyroidism as well. Talk to your family doctor about ultrasound of your thyroid for further definitive diagnosis.If you have any worsening of your condition or any other concerning signs or symptoms, return to the emergency department or your primary care doctor for further evaluation. Clinical Impressions Clinical Impression: Cold thyroid nodule, Subclinical hypothyroidism Print Language Print Language: Chinese Discharge ED Provider: Cresencio Betancur General Adult HPI General Chief complaint: Recheck/Abnormal Lab/Rx Stated complaint: knot on throat Time Seen by Provider: 06/20/24 17:15 Mode of Arrival: Ambulatory Source of Information: Patient Limitations: No Limitations Description of Symptoms (Recalled from ER Triage Doc. by RN): pt states she noticed a swollen area on her neck this am. pt presents with a R anterior area around her thyroid that is swollen and dense. pt denies any other symptoms. pt is unsure how long it has been present. History of Present Illness HPI narrative: Please note that above description of symptoms, in this electronic medical record under categorization of recalled from ER triage doctor by RN are reflective of an initial nursing assessment, however, is not reflective of my full history and physical exam that was personally taken and clarified. Consequentially, this preceding description of symptoms, which may include the patient's categorized chief complaint in the EMR, do not reflect my personal clinical impression, and the ultimate description of history of present illness and patient stated complaints should be deferred to this section of the note. Unless stated otherwise or congruent with this section of the note, additional signs, symptoms, or incongruence should be interpreted as inaccurate with my clinical impression. Related Data Home Medications ?Medication ?Instructions ?Recorded ?Confirmed No Known Home Medications 06/20/24 06/20/24 Allergies Allergy/AdvReac Type Severity Reaction Status Date / Time No Known Allergies Allergy Verified 06/20/24 17:36 [facility] Disclaimer: The information contained in this section may have been updated after the patient was seen, as this information can be updated by other users. Surgical History (Updated 06/20/24 @ 16:50 by Nathalia Wheeler RN) History of hysterectomy Social History Smoking Status: Current every day smoker alcohol intake: never current occupational status: other Travel in the last 8 weeks: None Other Medical History Have you received the Flu Vaccine for this season: No Have you received the Pneumonia Vaccine: No ROS Obtained: Yes All systems reviewed & no additional complaints except as documented Physical Exam General General appearance: alert and in no apparent distress Head Head exam: atraumatic and normocephalic Eye Eye exam: Present normal appearance, PERRL and EOMI ENT ENT exam: Present other (per MDM) Neck Neck exam: Present normal inspection, full ROM and trachea midline Respiratory Respiratory exam: Present normal lung sounds bilaterally; Absent respiratory distress, wheezes, stridor, accessory muscle use or prolonged expiratory phase Cardiovascular Cardiovascular exam: Present other (Pulses equal symmetric in upper and lower extremities) Abdominal Exam Abdominal exam: Present soft; Absent distention, tenderness or pulsatile mass Extremities Exam Extremities exam: Absent edema Neurological Exam Neurological exam: Present alert, oriented X3 and CN II-XII intact; Absent motor sensory deficit Skin Skin exam: Present warm and dry; Absent diaphoresis or erythema Medical Decision Making Medical Records Medical records reviewed: Yes I reviewed the patient's medical records. Screening: Per USPSTF and CDC recommendations, given the prevalence of disease in our region, it is our hospital?s policy to screen for HIV and viral Hepatitis for all patients aged 18 and over and those with ongoing risk factors. Clifford Inquiry Pt receiving controlled substance: No Clifford was queried for this patient: No Vital Signs: 06/20/24 16:40 06/20/24 17:27 06/20/24 17:30 Temperature 98.3 F 98.3 F Temperature Source Oral Oral Pulse Rate 101 H Pulse Rate [Left Brachial] 95 H 104 H Respiratory Rate 20 14 Blood Pressure 146/105 H Blood Pressure [Left Arm] 147/89 H 146/105 H Blood Pressure Mean [Left Arm] 108 118 Blood Pressure Source [Left Arm] Automatic Cuff Automatic Cuff Blood Pressure Position [Left Arm] Sitting Sitting 02 Sat by Pulse Oximetry 98 98 99 Oxygen Delivery Method Room Air Room Air Room Air 06/20/24 17:30 06/20/24 18:00 06/20/24 18:30 Temperature Temperature Source Pulse Rate 96 H 80 88 Pulse Rate [Left Brachial] Respiratory Rate Blood Pressure 147/103 H 148/95 H 152/105 H Blood Pressure [Left Arm] Blood Pressure Mean [Left Arm] Blood Pressure Source [Left Arm] Blood Pressure Position [Left Arm] 02 Sat by Pulse Oximetry 99 99 99 Oxygen Delivery Method Room Air Room Air Lab Data Lab Results 06/20/24 17:33: WBC 8.9, RBC 4.98, Hgb 16.5 H, Hct 47.7 H, MCV 95.7, MCH 33.2 H, MCHC 34.7, RDW 13.5, Plt Count 374, MPV 7.2 L, Neut % (Auto) 69.0, Lymph % (Auto) 23.3, [place] % (Auto) 4.9, Eos % (Auto) 1.5, Baso % (Auto) 1.4, Neut # (Auto) 6.1, Lymph # (Auto) 2.1, [place] # (Auto) 0.4, Eos # (Auto) 0.1, Baso # (Auto) 0.1, Sodium 140, Potassium 3.4 L, Chloride 106, Carbon Dioxide 27, Anion Gap 10.4, BUN 5 L, Creatinine 0.80, Estimated Creat Clear 97, Estimated GFR 77, Est GFR ( Amer) 93, Glucose 101 H, Calcium 9.3, Total Bilirubin 0.5, AST 29, ALT 23, Alkaline Phosphatase 140 H, Total Protein 9.3 H D, Albumin 4.6, Globulin 4.7 H, Albumin/Globulin Ratio 1.0 L, TSH 39.00 H, Thyroxine (T4) 6.4 06/20/24 17:33 06/20/24 17:33 Orders (Tests/Meds): ED MEDICATIONS Discontinued Medications Generic Name Dose Route Start Last Admin Trade Name Freq PRN Reason Stop Dose Admin Iopamidol 75 ml 06/20/24 17:50 06/20/24 17:50 Iopamidol-370 (76%);100ml Bottle IV 06/20/24 17:51 75 ml ONCE ONE Administration Sodium Chloride 10 ml 06/20/24 17:50 06/20/24 17:50 Sodium Chloride 0.9% 10ml Syr (Rad Only) IV 06/20/24 17:51 10 ml ONCE ONE Administration ORDERS Category Date Time Status CT soft tissue neck w con Stat Cat Scan 06/20/24 17:32 Completed CBC w/Auto Diff [Complete Blood Count Auto Diff] Stat Lab 06/20/24 17:33 Completed CMP [Comprehensive Metabolic Panel] Stat Lab 06/20/24 17:33 Completed HIV (1&2) Antibody Rapid Stat Lab 06/20/24 17:33 Received Hep C Ab with Reflex to RNA Stat Lab 06/20/24 17:33 Received T4 (Thyroxine) Stat Lab 06/20/24 17:33 Completed TSH [Thyroid Stimulating Hormone] Stat Lab 06/20/24 17:33 Completed Medical Decision Narrative: 44-year-old female long smoking history with no other medical problems presenting with right-sided neck swelling. She noticed it today. Does not know if it has been present before this. Is nontender, associated with a feeling of difficulty swallowing, but tolerating p.o. intake without issue including liquids and solids. No fevers or chills, night sweats, voice changes, range of motion of neck difficulties, chest pain, or any other concerns. History was obtained via conversation with patient. On arrival, patient hemodynamically stable, alert, oriented x4, appropriate, GCS 15, moving all extremities spontaneously, pupils equal and reactive to light. Full physical exam performed and significant for well-appearing female no acute distress. Lungs are clear. Patient has right sided neck swelling concerning for thyroid nodule versus thyroid mass. She also has submental lymphadenopathy that is firm and fixed, nontender. No stridor, abnormal findings otherwise. No evidence of tonsillitis, exudate, pharyngeal erythema, uvular deviation, palatal swelling, trismus, external neck swelling, submental induration, dental abscess, angioedema, or other abnormal sheila pharyngeal findings. Differential includes thyroid mass, thyroid nodule, malignancy, among others. Patient placed on continuous cardiac monitoring and continuous pulse ox with initial blood pressure 152/105, heart rate 88, saturation 99% on room air. Workup independently interpreted and significant for nonactionable hematology or chemistry. 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 On independent interpretation of imaging, patient has large heterogenous right sided thyroid mass. Does appear to be exhibiting mild mass effect on trachea pushing at just left of midline, but no critical stenosis. No obvious lymphadenopathy otherwise. See radiology read for full review of final results. On reevaluation, patient still resting at baseline. Given patient presentation, workup, history, this most likely represents thyroid nodule. Because patient at baseline without signs or symptoms of clinical decompensation, deemed appropriate for discharge. Results were relayed to patient who voiced understanding and were agreeable to outpatient management and follow up. I discussed my clinical impression with patient and answered all questions. At this time, the evidence for any other entities in the differential is insufficient to warrant any further testing or ED observation. This was explained as well. Advisory was given that persistent or worsening symptoms require further evaluation. I confirmed the understanding of this discussion. Embroidery Worker disclaimer Much of this encounter note is an electronic slice cutting machine operator helper spoken language to printed text. Electronic slice cutting machine operator helper of the spoken language may permit errors. Although I have reviewed the note, some errors may still exist. Critical Care Critical Care Time Critical Care Time: No
[2024-06-20] MEDS: IOPAMIDOL-370 (76%);100ML BOTTLE 75 ML IV (17:50)
[2024-06-20] MEDS: SODIUM CHLORIDE 0.9% 10ML SYR (RAD ONLY) 10 ML IV (17:50)
[2024-06-20 17:54] LABS: Basophils # 0.1 K/mm3 (0-0.2); Basophils % 1.4 % (0.1-2.0); Eosinophils # 0.1 K/mm3 (0.0-0.4); Eosinophils % 1.5 % (0.1-12.0); Hematocrit 47.7 % (37.0-47.0); Hemoglobin 16.5 g/dL (12.2-16.2); Lymphocytes # 2.1 K/mm3 (0.7-4.5); Lymphocytes % 23.3 % (10-50); Mean Corpuscular HGB Conc 34.7 g/dL (31.8-35.4); Mean Corpuscular Hemoglobin 33.2 pg (27.0-31.2); Mean Corpuscular Volume 95.7 fl (81-99); Mean Platelet Volume 7.2 fl (7.4-10.4); Monocytes # 0.4 K/mm3 (0.1-1.0); Monocytes % 4.9 % (1.7-9.3); Neutrophils # 6.1 K/mm3 (1.8-7.8); Platelet Count 374 K/mm3 (142-424); Red Blood Count 4.98 M/mm3 (4.20-5.40); Red Cell Distribution Width 13.5 % (11.5-17.5); White Blood Count 8.9 K/mm3 (4.8-10.8)
[2024-06-20 17:59] LABS: Albumin Level 4.6 g/dl (3.5-5.0); Chloride 106 mmol/L (98-107); Potassium 3.4 mmoL/L (3.5-5.1); Sodium 140 mmol/L (136-145)
[2024-06-20 18:00] VITALS: BP 148/95; PULSE 80; O2SAT 99
[2024-06-20 18:02] LABS: Alanine Aminotransferase 23 U/L (12-78); Alkaline Phosphatase 140 U/L (38-126); Anion Gap 10.4 mEq/L (5-15); Aspartate Amino Transferase 29 U/L (14-36); Bilirubin,Total 0.5 mg/dl (0.2-1.3); Blood Urea Nitrogen 5 mg/dl (7-17); Calcium 9.3 mg/dl (8.4-10.2); Carbon Dioxide 27 mmol/L (22.0-30.0); Creatinine Clearance Estimated 97 mL/min (50-200); Estimated Glomerular Filt Rate 77 ml/min (>60); GFR (African American) 93 ML/MIN (>60); Globulin 4.7 g/dL (1.3-3.2); Glucose 101 mg/dl (74-100); Total Protein,Serum 9.3 g/dl (6.3-8.2)
[2024-06-20 18:19] LABS: T4 (Thyroxine) 6.4 ug/dl (5.53-11.0)
[2024-06-20 18:30] VITALS: BP 152/105; PULSE 88; O2SAT 99
[2024-06-20 19:56] VITALS: BP 144/93; PULSE 87; RESP 16; TEMP 37; O2SAT 97
[2024-06-20 22:52] LABS: HIV (1&2) Antibody Rapid NONREACTIVE (NONREACTIVE)
[2024-06-22 08:19] LABS: HCV Ab Non Reactive (Non Reactive)
== END 2024-06-20 19:57 | disposition home or self-care (01) ==
LOC: UTC 16:10 → ER 17:21
PROVIDERS: Emergency Provider Emergency Medicine
DX: E03.8 Other specified hypothyroidism (principal); E04.1 Nontoxic single thyroid nodule; R22.1 Localized swelling, mass and lump, neck
CPT/HCPCS: 70491; 80053; 84436; 84443; 85025; 86803; 87389; 99285; Q9967

== ENCOUNTER 2024-07-12 14:39 | Outpatient (CLI) | payer OTHER, SELFPAY ==
--- NOTE | 2024-07-12 14:44 | MM_ITS ---
PROCEDURE INFORMATION: Exam: MG Bilateral Screening 3D Mammography Exam date and time: 07/12/2024 2:57 PM Age: 44 years old Clinical indication: Screening examination. TECHNIQUE: Imaging protocol: Bilateral Screening tomosynthesis and 2D mammography including computer-aided detection (CAD) when performed. COMPARISON: No relevant prior studies available. FINDINGS: MAMMOGRAPHY: Breast composition: There are scattered areas of fibroglandular density. Mass: Oval 0.6 cm partially obscured mass in the right breast 6 o'clock region, 4 cm from the nipple. Architectural distortion: None. Calcifications: No suspicious calcifications. Asymmetric density: None. Skin thickening: None. Axillary adenopathy: None. IMPRESSION: Patient to be recalled for spot compression views of the right breast in the CC and MLO projections, a full 90 degree lateral view, and right breast ultrasound for further evaluation of a right breast mass. ASSESSMENT: BI-RADS Category 0: Incomplete- Need Additional Imaging Evaluation.
--- NOTE | 2024-07-12 14:44 | US_ITS ---
FINAL REPORT CLINICAL HISTORY: ENLARGED THYROID ON CT FINDINGS: Sonographic images of the thyroid gland were obtained. The right thyroid lobe measures 56 mm. in length. The left thyroid lobe measures 57 mm. in length. The thyroid isthmus measures 13 mm. Thyroid is significantly enlarged, heterogeneous and lobular consistent with thyroiditis or goiter. There is no well-defined mass or nodule. IMPRESSION: Findings consistent with thyroiditis or goiter. Reviewed, Interpreted and Dictated by Juanpablo Cordova III, MD Transcribed by Citlalli Al Authenticated and [facility]
== END 2024-07-12 23:59 | disposition home or self-care (01) ==
LOC: RAD 14:40
PROVIDERS: PCP Internal Medicine Adolescent Medicine; Visit Provider Nurse Practitioner Family
DX: Z12.31 Encounter for screening mammogram for malignant neoplasm of breast (principal); E04.1 Nontoxic single thyroid nodule
CPT/HCPCS: 76536; 77063; 77067

== ENCOUNTER 2025-03-07 08:51 | Outpatient (CLI) | payer OTHER, SELFPAY ==
--- OUTSIDE RECORDS SUMMARY | 2025-03-07 08:54 | XMS_ITS | Data Portability ---
Author Organization [employer] [facility] [place] Address [address] [place] [address] Assessment Encounter Date Assessment Date Assessment LastModified by Organization Details LastModified Time 08/23/2024 08/23/2024 HTN - BP above goal, increase lisinopril. Thyroid - labs today. Will plan to repeat u/s in 6-12 months. Migraines - increase rizatriptan as outlined per plan below, she is getting partial relief of migraines on current dose. Smoking - congratulated continued efforts. Will start chantix as prescribed. Discussed risks and benefits and safety of medication. Quit date set for 09/08/2024. Follow up in 6 weeks for recheck, suspect repeat TSH/T4 if needed, recheck HTN and smoking cessation. Not available 08/23/2024 15:48:19 10/04/2024 10/04/2024 BP at goal, continue current regimen. Plan to recheck TSH/T4 at follow up. Continue efforts for smoking cessation, will reassess at follow up. Right knee pain - Recommended applying ice and taking naproxen regularly OTC per package instructions for a few days. If pain continues, may consider physical therapy. May also use soft knee support OTC. Not available 10/11/2024 17:47:24 11/15/2024 11/15/2024 1. Thyroid - recheck labs today. Send in 90 day RF with results if stable. 2. HTN - continue to monitor, encouraged to check at home, may consider increasing HTN if not <130/<80 at follow up. 3. Smoking cessation - continue nicotine replacement. Continue efforts to cut back/quit smoking, congratulated efforts thus far. 4. Follow up in 3 months for annual exam and recheck, Will order repeat thyroid ultrasound at follow up. Not available 11/15/2024 09:37:00 03/02/2025 03/02/2025 Wellness discussed including recommended screenings, vaccines and lifestyle changes including routine exercise 30 minutes 5 times per week and a healthy diet. Labs per plan below. Colon CA screening discussed and patient chooses cologuard. No family or personal history of Colon CA. Mammogram scheduled. Referral to [facility] for pap. Recheck thyroid and ultrasound. Continue efforts for smoking cessation. RF nicotine patches. Safety reviewed. Follow up to be planned with lab results and as needed. Not available 03/04/2025 11:09:53 Plan of Treatment Reminders Order Date Submit Date Provider Last Modified By Organization Details Last Modified Time Details Appointments FOLLOW UP 30 2024 11:30A Pinky Capone Not available Not available Not available Lab lipid panel, serum 2024 025 [facility] [address] [place] [address], [id number], 03/03/2025 04:07:21 CMP, serum or plasma [address] [facility]), [address] [place] [address], [id number], 03/03/2025 04:07:20 CBC w/ auto diff [address] [facility]), [address] [place] [address], [id number], 03/03/2025 04:07:20 noninvasi ve colorecta l cancer DNA + occult blood screening , QL, stool 2024 025 [facility] (Cologuard Orders Only), [address], [address], [place], [address], 03/02/2025 08:43:55 TSH + free T4, serum 2024 025 [facility] [address] [place] [address], [id number], 03/03/2025 04:07:19 lipid panel, serum [address] [facility]), [address] [place], [address], 11/16/2024 06:09:52 CBC w/ auto diff [address] [facility]), [address] [place], [address], 11/16/2024 06:09:51 CMP, serum or plasma [address] [facility]), [address] [place], [address], 11/16/2024 06:09:52 TSH + free T4, serum [address] [facility]), [address] [place], [address], 11/16/2024 08:12:17 TSH + free T4, serum [address] [facility]), [address] [place], [address], 08/24/2024 04:07:33 Referral gynecolog ist referral - First available 2024 025 leelee Graham DO, [address], [address], [place], [address], 03/02/2025 08:56:32 Procedures None recorded. Surgeries None recorded. Imaging US, thyroid 2024 025 [facility] ([facility]), [address], [place], [address], 03/02/2025 09:20:57 home sleep study 2024 025 [facility], [address] [facility], [address], [place], [address], 03/04/2025 15:28:49 Medication Orders Fish Oil 1,000 mg (120 mg-180 mg) capsule 2024 025 [facility], [address] [place] [address], [address], 03/04/2025 13:25:14 cetirizin e 10 mg tablet 2024 025 [facility], [address] [place] [address], [address], 03/02/2025 17:46:19 Naprosyn 500 mg tablet 2024 025 [facility], [address] [place] [address], [address], 03/02/2025 17:46:19 hydrochlo rothiazid e 12.5 mg capsule 2024 025 [facility], [address] [place] [address], [address], 03/02/2025 17:46:20 lisinopri l 20 mg tablet 2024 025 [facility], [address] [place] [address], [address], 03/02/2025 09:23:46 nicotine 21 mg/24 hr daily transderm al patch 2024 025 [facility], [address] [place] [address], [address], 03/05/2025 09:05:35 neomycin- polymyxin -dexameth 3.5 mg/mL-10, 000 unit/mL-0 .1% eye drops 2024 025 [facility], [address] [place] [address], [address], 12/14/2024 14:04:06 hydrochlo rothiazid e 12.5 mg capsule 2024 025 [facility], [address] [place] [address], [address], 11/27/2024 10:03:20 lisinopri l 20 mg tablet 2024 025 [facility], [address] [place] [address], [address], 11/17/2024 10:34:48 nicotine 21 mg/24 hr daily transderm al patch 2024 025 [facility], [address] [place] [address], [address], 11/17/2024 10:34:48 hydrochlo rothiazid e 12.5 mg capsule 2024 025 [facility], [address] [place] [address], [address], 10/05/2024 15:07:01 Chantix Starting Month Box 0.5 mg (11)-1 mg (42) tablets in dose pack 2023 025 [facility], [address] [place] [address], [address], 11/15/2024 09:43:37 lisinopri l 20 mg tablet 2023 024 [facility], [address] [place] [address], [address], 08/23/2024 17:30:30 nicotine 21 mg/24 hr daily transderm al patch 2023 024 [facility], [address] [place] [address], [address], 08/23/2024 17:30:32 rizatript an 10 mg disintegr ating tablet 2023 024 [facility], [address] [place], [address], 08/23/2024 17:30:30 Naprosyn 500 mg tablet 2023 024 [facility], [facility] [place], [address], 08/23/2024 17:30:31 Patient TargetsNo targets recorded. Patient Instructions Encounter Date Encounter Id Patient Instructions Last Modified By Organization Details Last Modified Time 08/23/2024 [id number] Quitting Tobacco : Care Instructions Not available 08/23/2024 11:25:27 10/04/2024 [id number] Quitting Tobacco : Care Instructions Not available 10/11/2024 17:47:56 hypothyroidism: care instructions Not available 10/04/2024 11:16:46 11/15/2024 [id number] Quitting Tobacco : Care Instructions Not available 11/15/2024 09:33:05 high blood pressure: care instructions Not available 11/15/2024 09:33:05 learning about high blood pressure Not available 11/15/2024 09:33:05 hypothyroidism: care instructions Not available 11/15/2024 09:33:05 Reason for Referral Director Camp Referral for Sa mpling of cervix for Papanicolaou smear First available Referring Physician: Pinky Muhammad, Family Medicine, Encounter Date: 03/02/2025 Results Created Date Observation Date Name Description Value Unit Range Abnormal Flag Note LastModifiedBy Organization Detail LastModifiedTime 08/23/2008/24/2024 TSH+F REE T4 TSH 3.550 uIU/m L 0.450- 4.500 normal Not Available [facility] ([facility]) [address] [facility], [place], [address], 08/24/2024 04:07:33 08/23/20 24 08/24/2024 TSH+F REE T4 T4,free(dire ct) 1.40 NG/dL 0.82-1 .77 normal Not Available [facility] ([facility]) [address] [place], [address], 08/24/2024 04:07:33 11/16/19 25 11/16/2024 CBC WITH DIFFE RENTI AL/PL ATELE T WBC 7.7 x10e3 /uL 3.4-10 .8 normal Not Available [facility] ([facility]) [address] [place], [address], 11/16/2024 06:09:51 11/16/19 25 11/16/2024 CBC WITH DIFFE RENTI AL/PL ATELE T RBC 4.39 x10e6 /uL 3.77-5 .28 normal Not Available [facility] ([facility]) [address] [place], [address], 11/16/2024 06:09:51 11/16/19 25 11/16/2024 CBC WITH DIFFE RENTI AL/PL ATELE T hemoglobin 14.7 g/dL 11.1-1 5.9 normal Not Available [facility] ([facility]) [address] [place], [address], 11/16/2024 06:09:51 11/16/19 25 11/16/2024 CBC WITH DIFFE RENTI AL/PL ATELE T hematocrit 42.3 % 34.0-4 6.6 normal Not Available [facility] ([facility]) [address] [place], [address], 11/16/2024 06:09:51 11/16/19 25 11/16/2024 CBC WITH DIFFE RENTI AL/PL ATELE T MCV 96 fL 79-97 normal Not Available [facility] ([facility]) [address] [place], [address], 11/16/2024 06:09:51 11/16/19 25 11/16/2024 CBC WITH DIFFE RENTI AL/PL ATELE T MCH 33.5 pg 26.6-3 3.0 above high normal Not Available [facility] ([facility]) [address] [place], [address], 11/16/2024 06:09:51 11/16/19 25 11/16/2024 CBC WITH DIFFE RENTI AL/PL ATELE T MCHC 34.8 g/dL 31.5-3 5.7 normal Not Available [facility] ([facility]) [address] [facility], [place], [address], 11/16/2024 06:09:51 11/16/19 25 11/16/2024 CBC WITH DIFFE RENTI AL/PL ATELE T RDW 13.0 % 11.7-1 5.4 Not Available [facility] ([facility]) [address] [facility], [place], [address], 11/16/2024 06:09:51 11/16/19 25 11/16/2024 CBC WITH DIFFE RENTI AL/PL ATELE T platelets 280 x10e3 /uL 150-45 0 normal Not Available [facility] ([facility]) [address] [place], [address], 11/16/2024 06:09:51 11/16/19 25 11/16/2024 CBC WITH DIFFE RENTI AL/PL ATELE T neutrophils 68 % not estab. normal Not Available [facility] ([facility]) [address] [place], [address], 11/16/2024 06:09:51 11/16/19 25 11/16/2024 CBC WITH DIFFE RENTI AL/PL ATELE T lymphs 23 % not estab. normal Not Available [facility] ([facility]) [address] [place], [address], 11/16/2024 06:09:51 11/16/19 25 11/16/2024 CBC WITH DIFFE RENTI AL/PL ATELE T monocytes 6 % not estab. normal Not Available [facility] ([facility]) [address] [facility], [place], [address], 11/16/2024 06:09:51 11/16/19 25 11/16/2024 CBC WITH DIFFE RENTI AL/PL ATELE T eos 2 % not estab. normal Not Available [facility] ([facility]) [address] [place], [address], 11/16/2024 06:09:51 11/16/19 25 11/16/2024 CBC WITH DIFFE RENTI AL/PL ATELE T basos 1 % not estab. normal Not Available [facility] ([facility]) [address] [facility], [place], [address], 11/16/2024 06:09:51 11/16/19 25 11/16/2024 CBC WITH DIFFE RENTI AL/PL ATELE T immature cells [employer] WORK[employer] Not Available [facility] ([facility]) [address] [place], [address], 11/16/2024 06:09:51 11/16/19 25 11/16/2024 CBC WITH DIFFE RENTI AL/PL ATELE T neutrophils (absolute) 5.2 x10e3 /uL 1.4-7. 0 normal Not Available [facility] ([facility]) [address] [place], [address], 11/16/2024 06:09:51 11/16/19 25 11/16/2024 CBC WITH DIFFE RENTI AL/PL ATELE T lymphs (absolute) 1.8 x10e3 /uL 0.7-3. 1 normal Not Available [facility] ([facility]) [address] [place], [address], 11/16/2024 06:09:51 11/16/19 25 11/16/2024 CBC WITH DIFFE RENTI AL/PL ATELE T monocytes(ab solute) 0.5 x10e3 /uL 0.1-0. 9 normal Not Available [facility] ([facility]) [address] [facility], [place], [address], 11/16/2024 06:09:51 11/16/19 25 11/16/2024 CBC WITH DIFFE RENTI AL/PL ATELE T eos (absolute) 0.2 x10e3 /uL 0.0-0. 4 normal Not Available [facility] ([facility]) [address] [facility], [place], [address], 11/16/2024 06:09:51 11/16/19 25 11/16/2024 CBC WITH DIFFE RENTI AL/PL ATELE T baso (absolute) 0.0 x10e3 /uL 0.0-0. 2 normal Not Available [facility] ([facility]) [address] [facility], [place], [address], 11/16/2024 06:09:51 11/16/1911/16/2024 CBC WITH DIFFE RENTI AL/PL ATELE T immature granulocytes 0 % not estab. Not Available [facility] ([facility]) [address] [facility], [place], [address], 11/16/2024 06:09:51 11/16/19 25 11/16/2024 CBC WITH DIFFE RENTI AL/PL ATELE T immature grans (abs) 0.0 x10e3 /uL 0.0-0. 1 Not Available [facility] ([facility]) [address] [place], [address], 11/16/2024 06:09:51 11/16/19 25 11/16/2024 CBC WITH DIFFE RENTI AL/PL ATELE T NRBC [employer] Not Available [facility] ([facility]) [address] [facility], [place], [address], 11/16/2024 06:09:51 11/16/19 25 11/16/2024 CBC WITH DIFFE RENTI AL/PL ATELE T hematology comments: [employer] WORK[employer] Not Available [facility] ([facility]) [address] [facility] [place], [address], 11/16/2024 06:09:51 11/16/19 25 11/16/2024 COMP. METAB OLIC PANEL (14) glucose 104 mg/dL 70-99 above high normal Not Available [facility] ([facility]) [address] [facility] [place], [address], 11/16/2024 06:09:52 11/16/19 25 11/16/2024 COMP. METAB OLIC PANEL (14) BUN 10 mg/dL 6-24 normal Not Available [facility] ([facility]) [address] [place], [address], 11/16/2024 06:09:52 11/16/19 25 11/16/2024 COMP. METAB OLIC PANEL (14) creatinine 0.84 mg/dL 0.57-1 .00 normal Not Available [facility] ([facility]) [address] [place], [address], 11/16/2024 06:09:52 11/16/19 25 11/16/2024 COMP. METAB OLIC PANEL (14) eGFR 87 mL/mi n/1.7 3 >59 normal Not Available [facility] ([facility]) [address] [place], [address], 11/16/2024 06:09:52 11/16/19 25 11/16/2024 COMP. METAB OLIC PANEL (14) BUN/creatini ne ratio 12 9-23 normal Not Available [facility] ([facility]) [address] [place], [address], 11/16/2024 06:09:52 11/16/19 25 11/16/2024 COMP. METAB OLIC PANEL (14) sodium 139 mmol/ L 134-14 4 normal Not Available [facility] ([facility]) [address] [place], [address], 11/16/2024 06:09:52 11/16/19 25 11/16/2024 COMP. METAB OLIC PANEL (14) potassium 3.5 mmol/ L 3.5-5. 2 normal Not Available [facility] ([facility]) [address] [place], [address], 11/16/2024 06:09:52 11/16/19 25 11/16/2024 COMP. METAB OLIC PANEL (14) chloride 102 mmol/ L 96-106 normal Not Available [facility] ([facility]) [address] [place], [address], 11/16/2024 06:09:52 11/16/19 25 11/16/2024 COMP. METAB OLIC PANEL (14) carbon dioxide, total 23 mmol/ L 20-29 normal Not Available [facility] ([facility]) [address] [place], [address], 11/16/2024 06:09:52 11/16/19 25 11/16/2024 COMP. METAB OLIC PANEL (14) calcium 9.1 mg/dL 8.7-10 .2 normal Not Available [facility] ([facility]) [address] [place], [address], 11/16/2024 06:09:52 11/16/19 25 11/16/2024 COMP. METAB OLIC PANEL (14) protein, total 7.4 g/dL 6.0-8. 5 normal Not Available [facility] ([facility]) [address] [place], [address], 11/16/2024 06:09:52 11/16/19 25 11/16/2024 COMP. METAB OLIC PANEL (14) albumin 4.0 g/dL 3.9-4. 9 normal Not Available [facility] ([facility]) [address] [place], [address], 11/16/2024 06:09:52 11/16/19 25 11/16/2024 COMP. METAB OLIC PANEL (14) globulin, total 3.4 g/dL 1.5-4. 5 Not Available [facility] ([facility]) [address] [place], [address], 11/16/2024 06:09:52 11/16/19 25 11/16/2024 COMP. METAB OLIC PANEL (14) bilirubin, total 0.2 mg/dL 0.0-1. 2 normal Not Available [facility] ([facility]) [address] [place], [address], 11/16/2024 06:09:52 11/16/19 25 11/16/2024 COMP. METAB OLIC PANEL (14) alkaline phosphatase 144 IU/L 44-121 above high normal Not Available [facility] ([facility]) [address] [place], [address], 11/16/2024 06:09:52 11/16/19 25 11/16/2024 COMP. METAB OLIC PANEL (14) AST (SGOT) 19 IU/L 0-40 normal Not Available [facility] ([facility]) [address] [place], [address], 11/16/2024 06:09:52 11/16/19 25 11/16/2024 COMP. METAB OLIC PANEL (14) ALT (SGPT) 21 IU/L 0-32 normal Not Available [facility] ([facility]) [address] [place], [address], 11/16/2024 06:09:52 11/16/19 25 11/16/2024 LIPID PANEL cholesterol, total 182 mg/dL 100-19 9 normal Not Available [facility] ([facility]) [address] [place], [address], 11/16/2024 06:09:52 11/16/19 25 11/16/2024 LIPID PANEL triglyceride s 524 mg/dL 0-149 above high normal Not Available [facility] ([facility]) [address] [place], [address], 11/16/2024 06:09:52 11/16/1911/16/2024 LIPID PANEL HDL cholesterol 21 mg/dL >39 below low normal Not Available [facility] ([facility]) [address] [place], [address], 11/16/2024 06:09:52 11/16/19 25 11/16/2024 LIPID PANEL VLDL cholesterol harvinder 84 mg/dL 5-40 above high normal Not Available [facility] ([facility]) [address] [place], [address], 11/16/2024 06:09:52 11/16/1911/16/2024 LIPID PANEL LDL chol calc ([facility]) 77 mg/dL 0-99 Not Available [facility] ([facility]) [address] [place], [address], 11/16/2024 06:09:52 11/16/1911/16/2024 LIPID PANEL LDL calc comment: [employer]ON S[employer] WORKER Not Available [facility] ([facility]) [address] [place], [address], 11/16/2024 06:09:52 11/16/1911/16/2024 TSH+F REE T4 TSH 3.930 uIU/m L 0.450- 4.500 normal Not Available [facility] ([facility]) [address] [place], [address], 11/16/2024 08:12:17 11/16/1911/16/2024 TSH+F REE T4 T4,free(dire ct) 1.58 NG/dL 0.82-1 .77 normal Not Available [facility] ([facility]) [address] [place], [address], 11/16/2024 08:12:17 03/02/2003/03/2025 TSH+F REE T4 TSH 0.308 uIU/m L 0.450- 4.500 below low normal Not Available [facility] ([facility]) [address] [place], [address], 03/03/2025 04:07:19 03/02/2003/03/2025 TSH+F REE T4 T4,free(dire ct) 1.61 NG/dL 0.82-1 .77 normal Not Available [facility] ([facility]) [address] [place], [address], 03/03/2025 04:07:19 03/02/2003/03/2025 CBC WITH DIFFE RENTI AL/PL ATELE T WBC 9.2 x10e3 /uL 3.4-10 .8 normal Not Available [facility] ([facility]) [address] [place], [address], 03/03/2025 04:07:20 03/02/2003/03/2025 CBC WITH DIFFE RENTI AL/PL ATELE T RBC 4.79 x10e6 /uL 3.77-5 .28 normal Not Available [facility] ([facility]) [address] [place], [address], 03/03/2025 04:07:20 03/02/2003/03/2025 CBC WITH DIFFE RENTI AL/PL ATELE T hemoglobin 15.3 g/dL 11.1-1 5.9 normal Not Available [facility] ([facility]) [address] [place], [address], 03/03/2025 04:07:20 03/02/2003/03/2025 CBC WITH DIFFE RENTI AL/PL ATELE T hematocrit 46.8 % 34.0-4 6.6 above high normal Not Available [facility] ([facility]) [address] [place], [address], 03/03/2025 04:07:20 03/02/20 25 03/03/2025 CBC WITH DIFFE RENTI AL/PL ATELE T MCV 98 fL 79-97 above high normal Not Available [facility] ([facility]) [address] [facility], [place], [address], 03/03/2025 04:07:20 03/02/20 25 03/03/2025 CBC WITH DIFFE RENTI AL/PL ATELE T MCH 31.9 pg 26.6-3 3.0 normal Not Available [facility] ([facility]) [address] [facility], [place], [address], 03/03/2025 04:07:20 03/02/20 25 03/03/2025 CBC WITH DIFFE RENTI AL/PL ATELE T MCHC 32.7 g/dL 31.5-3 5.7 normal Not Available [facility] ([facility]) [address] [facility], [place], [address], 03/03/2025 04:07:20 03/02/20 25 03/03/2025 CBC WITH DIFFE RENTI AL/PL ATELE T RDW 12.7 % 11.7-1 5.4 Not Available [facility] ([facility]) [address] [facility], [place], [address], 03/03/2025 04:07:20 03/02/2003/03/2025 CBC WITH DIFFE RENTI AL/PL ATELE T platelets 278 x10e3 /uL 150-45 0 normal Not Available [facility] ([facility]) [address] [facility], [place], [address], 03/03/2025 04:07:20 03/02/20 25 03/03/2025 CBC WITH DIFFE RENTI AL/PL ATELE T neutrophils 63 % not estab. normal Not Available [facility] ([facility]) [address] [place], [address], 03/03/2025 04:07:20 03/02/20 25 03/03/2025 CBC WITH DIFFE RENTI AL/PL ATELE T lymphs 27 % not estab. normal Not Available [facility] ([facility]) [address] [facility], [place], [address], 03/03/2025 04:07:20 03/02/20 25 03/03/2025 CBC WITH DIFFE RENTI AL/PL ATELE T monocytes 6 % not estab. normal Not Available [facility] ([facility]) [address] [facility], [place], [address], 03/03/2025 04:07:20 03/02/2003/03/2025 CBC WITH DIFFE RENTI AL/PL ATELE T eos 2 % not estab. normal Not Available [facility] ([facility]) [address] [facility], [place], [address], 03/03/2025 04:07:20 03/02/20 25 03/03/2025 CBC WITH DIFFE RENTI AL/PL ATELE T basos 1 % not estab. normal Not Available [facility] ([facility]) [address] [place], [address], 03/03/2025 04:07:20 03/02/20 25 03/03/2025 CBC WITH DIFFE RENTI AL/PL ATELE T immature cells NEON S[employer] WORKER Not Available [facility] ([facility]) [address] [place], [address], 03/03/2025 04:07:20 03/02/2003/03/2025 CBC WITH DIFFE RENTI AL/PL ATELE T neutrophils (absolute) 5.8 x10e3 /uL 1.4-7. 0 normal Not Available [facility] ([facility]) [address] [place], [address], 03/03/2025 04:07:20 03/02/20 25 03/03/2025 CBC WITH DIFFE RENTI AL/PL ATELE T lymphs (absolute) 2.5 x10e3 /uL 0.7-3. 1 normal Not Available [facility] ([facility]) [address] [facility], [place], [address], 03/03/2025 04:07:20 03/02/20 25 03/03/2025 CBC WITH DIFFE RENTI AL/PL ATELE T monocytes(ab solute) 0.5 x10e3 /uL 0.1-0. 9 normal Not Available [facility] ([facility]) [address] [place], [address], 03/03/2025 04:07:20 03/02/2003/03/2025 CBC WITH DIFFE RENTI AL/PL ATELE T eos (absolute) 0.2 x10e3 /uL 0.0-0. 4 normal Not Available [facility] ([facility]) [address] [place], [address], 03/03/2025 04:07:20 03/02/20 25 03/03/2025 CBC WITH DIFFE RENTI AL/PL ATELE T baso (absolute) 0.1 x10e3 /uL 0.0-0. 2 normal Not Available [facility] ([facility]) [address] [place], [address], 03/03/2025 04:07:20 03/02/2003/03/2025 CBC WITH DIFFE RENTI AL/PL ATELE T immature granulocytes 1 % not estab. Not Available [facility] ([facility]) [address] [place], [address], 03/03/2025 04:07:20 03/02/2003/03/2025 CBC WITH DIFFE RENTI AL/PL ATELE T immature grans (abs) 0.1 x10e3 /uL 0.0-0. 1 Not Available [facility] ([facility]) [address] [place], [address], 03/03/2025 04:07:20 03/02/20 25 03/03/2025 CBC WITH DIFFE RENTI AL/PL ATELE T NRBC NEON S[employer] WORKER Not Available [facility] ([facility]) [address] [facility], [place], [address], 03/03/2025 04:07:20 03/02/20 25 03/03/2025 CBC WITH DIFFE RENTI AL/PL ATELE T hematology comments: NEON S[employer] WORKER Not Available [facility] ([facility]) [address] [facility], [place], [address], 03/03/2025 04:07:20 03/02/20 25 03/03/2025 COMP. METAB OLIC PANEL (14) glucose 95 mg/dL 70-99 normal Not Available [facility] ([facility]) [address] [place], [address], 03/03/2025 04:07:20 03/02/20 25 03/03/2025 COMP. METAB OLIC PANEL (14) BUN 9 mg/dL 6-24 normal Not Available [facility] [facility] [address] [place], [address], 03/03/2025 04:07:20 03/02/20 25 03/03/2025 COMP. METAB OLIC PANEL (14) creatinine 0.75 mg/dL 0.57-1 .00 normal Not Available [facility] ([facility]) [address] [place], [address], 03/03/2025 04:07:20 03/02/20 25 03/03/2025 COMP. METAB OLIC PANEL (14) eGFR 99 mL/mi n/1.7 3 >59 normal Not Available [facility] ([facility]) [address] [place], [address], 03/03/2025 04:07:20 03/02/20 25 03/03/2025 COMP. METAB OLIC PANEL (14) BUN/creatini ne ratio 12 9-23 normal Not Available [facility] ([facility]) [address] [place], [address], 03/03/2025 04:07:20 03/02/20 25 03/03/2025 COMP. METAB OLIC PANEL (14) sodium 138 mmol/ L 134-14 4 normal Not Available [facility] ([facility]) [address] [place], [address], 03/03/2025 04:07:20 03/02/20 25 03/03/2025 COMP. METAB OLIC PANEL (14) potassium 3.6 mmol/ L 3.5-5. 2 normal Not Available [facility] ([facility]) [address] [facility] [place], [address], 03/03/2025 04:07:20 03/02/20 25 03/03/2025 COMP. METAB OLIC PANEL (14) chloride 103 mmol/ L 96-106 normal Not Available [facility] ([facility]) [address] [place], [address], 03/03/2025 04:07:20 03/02/20 25 03/03/2025 COMP. METAB OLIC PANEL (14) carbon dioxide, total 20 mmol/ L 20-29 normal Not Available [facility] ([facility]) [address] [facility] [place], [address], 03/03/2025 04:07:20 03/02/20 25 03/03/2025 COMP. METAB OLIC PANEL (14) calcium 8.9 mg/dL 8.7-10 .2 normal Not Available [facility] ([facility]) [address] [facility] [place], [address], 03/03/2025 04:07:20 03/02/20 25 03/03/2025 COMP. METAB OLIC PANEL (14) protein, total 7.4 g/dL 6.0-8. 5 normal Not Available [facility] ([facility]) [address] [place], [address], 03/03/2025 04:07:20 03/02/20 25 03/03/2025 COMP. METAB OLIC PANEL (14) albumin 4.2 g/dL 3.9-4. 9 normal Not Available [facility] ([facility]) [address] [place], [address], 03/03/2025 04:07:20 03/02/20 25 03/03/2025 COMP. METAB OLIC PANEL (14) globulin, total 3.2 g/dL 1.5-4. 5 Not Available [facility] ([facility]) [address] [facility] [place], [address], 03/03/2025 04:07:20 03/02/20 25 03/03/2025 COMP. METAB OLIC PANEL (14) bilirubin, total 0.3 mg/dL 0.0-1. 2 normal Not Available [facility] ([facility]) [address] [facility] [place], [address], 03/03/2025 04:07:20 03/02/20 25 03/03/2025 COMP. METAB OLIC PANEL (14) alkaline phosphatase 119 IU/L 44-121 normal Not Available [facility] ([facility]) [address] [facility] [place], [address], 03/03/2025 04:07:20 03/02/20 25 03/03/2025 COMP. METAB OLIC PANEL (14) AST (SGOT) 16 IU/L 0-40 normal Not Available [facility] ([facility]) [address] [facility] [place], [address], 03/03/2025 04:07:20 03/02/20 25 03/03/2025 COMP. METAB OLIC PANEL (14) ALT (SGPT) 15 IU/L 0-32 normal Not Available [facility] ([facility]) [address] [place], [address], 03/03/2025 04:07:20 03/02/20 25 03/03/2025 LIPID PANEL cholesterol, total 158 mg/dL 100-19 9 normal Not Available [facility] ([facility]) [address] [place], [address], 03/03/2025 04:07:21 03/02/20 25 03/03/2025 LIPID PANEL triglyceride s 373 mg/dL 0-149 above high normal Not Available [facility] ([facility]) [address] [place], [address], 03/03/2025 04:07:21 03/02/20 25 03/03/2025 LIPID PANEL HDL cholesterol 23 mg/dL >39 below low normal Not Available [facility] ([facility]) [address] [place], [address], 03/03/2025 04:07:21 03/02/20 25 03/03/2025 LIPID PANEL VLDL cholesterol harvinder 60 mg/dL 5-40 above high normal Not Available [facility] ([facility]) [address] [place], [address], 03/03/2025 04:07:21 03/02/20 25 03/03/2025 LIPID PANEL LDL chol calc ([facility]) 75 mg/dL 0-99 Not Available [facility] ([facility]) [address] [place], [address], 03/03/2025 04:07:21 03/02/20 25 03/03/2025 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 Problems Name Problem SNOMED Code Status Onset Date Resolution Date Notes Provider Name and Address Organization Details Recorded Time Thyroid nodule 186899741 Active 2023 Pinky Muhammad NP [address] [place] [address], [address], [email or web address] 4 09:35:28 Hypothyro idism 61841333 Active 2023 Pinky Muhammad NP [address] [place] [address], [address] 8, [email or web address] 4 09:35:26 Elevated blood-pre ssure reading without diagnosis of hypertens ion 486407458 Completed 202311/15/2024 Pinky Muhammad NP [address] [place] [address], [address] 8, [email or web address] 5 09:27:43 Essential hypertens ion 59089064 Active 2023 Pinky Muhammad NP [address] [place] [address], [address] 8, [email or web address] 5 09:27:44 Nicotine dependenc e 67406171 Active 2023 Pinky Muhammad NP [address] [place] [address], [address] 8, [email or web address] 5 09:27:49 Migraine without aura 82702977 Active 2023 Pinky Muhammad NP [address] [place] [address], [address] 8, [employer] 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 5 09:27:46 Pain of right knee joint 832787797621 100 Active 2024 Pinky Muhammad NP [address] [place] [address], [address] 8, [employer] 5 09:27:52 Hypertrig lyceridem ia 539290631 Active 2024 Pinky Muhammad NP [address] [place] [address], [address] 8, [employer] 5 09:28:13 Seasonal allergic rhinitis 870288306 Active 2024 Pinky Muhammad NP [address] [place] [address], [address] 8, [employer] 5 08:39:18 Snoring 25769829 Active 2024 Pinky Muhammad NP [address] [place] [address], [address] 8, [employer] 5 08:44:12 Problem Notes None recorded. Procedures Surgical History Date Name Laterality Status Provider Name and Address Organization Details Recorded Time 07/19/20 24 Most Recent Mammogram completed [facility]. 02/14/2025 15:04:58 08/29/20 22 Date of Last Pap Smear completed [facility]. 06/23/2024 15:52:04 09/08/19 19 oophorectomy completed Pinky Muhammad NP [address] [place], [address], [employer] 06/23/2024 16:15:10 Caesarean Section completed [facility]. 06/23/2024 15:52:05 Hysterectomy completed [facility]. 06/23/2024 15:52:05 Tubal Ligation completed [facility]. 06/23/2024 15:52:05 Imaging Results None recorded. Procedure Notes None recorded. Medical Equipment None Reported. Allergies No known drug allergies Medications Name Sig Start Date Stop Date Status Note LastModified by Organization Details LastModified Time bupropion HCl SR 150 mg tablet,12 hr sustained-r elease TAKE ONE TABLET ONCE DAILY FOR 3 DAYS THEN INCREASE TO ONE TABLET TWICE DAILY 08/23 completed Not Available Not Available Not Available cetirizine 10 mg tablet Take 1 tablet every day by oral route. 2024 active Not Available Not Available Not Avai lable lisinopril 20 mg tablet Take 1 tablet every day by oral route. 2024 active Not Available Not Available Not Avai lable prednisolon e acetate 1 % eye drops,suspe nsion Instill one drop to left eye every 3 hours for 2 days, every 4 hours for 3 days, every 8 hours for 7 days, then every 12 hours for 7 days 03/02 completed Not Available Not Available Not Available rizatriptan 10 mg disintegrat ing tablet Take 1 tablet by sublingua l route as needed for migraine headaches . If symptoms persist after 2 hours, may repeat dose. Do not take more than 2 doses in 24 hours. active Not Available Not Available No t Available levothyroxi ne 125 mcg tablet Take 1 tablet by mouth every day, for thyroid. Take on an empty stomach at least 30 minutes prior to eating.. 03/02 completed Not Available Not Available Not Available neomycin-po lymyxin-dex ameth 3.5 mg/mL-10,00 0 unit/mL-0.1 % eye drops INSTILL 1 DROP INTO AFFECTED EYE(S) BY OPHTHALMI C ROUTE EVERY 3-4 HOURS 2024 active Not Available Not Available Not Avai lable lisinopril 10 mg tablet TAKE ONE TABLET BY MOUTH ONCE DAILY 08/23 completed Not Available Not Available Not Available nicotine 21 mg/24 hr daily transdermal patch Apply 1 patch every day by transderm al route. 2024 active Not Available Not Available Not Avai lable hydrochloro thiazide 12.5 mg capsule Take 1 capsule every day by oral route in the morning. 2024 active Not Available Not Available Not Avai lable rizatriptan 5 mg disintegrat ing tablet Take 1 tablet by sublingua l route as needed for migraine headaches . If symptoms persist after 2 hours, may repeat dose. Do not take more than 2 doses in 24 hours. 10/04 completed Not Available Not Available Not Available Naprosyn 500 mg tablet Take 1 tablet twice a day by oral route as needed, for migraines . 2024 active Not Available Not Available Not Avai lable levothyroxi ne 112 mcg tablet TAKE ONE TABLET BY MOUTH EVERY DAY on an empty stomach at least 30 minutes prior to eating for thyroid active Not Available Not Available No t Available varenicline tartrate 0.5 mg (11)-1 mg (42) tablets in a dose pack Take as directed on package 11/15 completed Not Available Not Available Not Available Fish Oil 1,000 mg (120 mg-180 mg) capsule Take 2 capsules every day by oral route, for triglycer ides. 2024 active Not Available Not Available Not Avai lable Vitals Date Recorded Body height Body mass index (BMI) Body weight Heart rate Oxygen saturation Oxygen saturation in Arterial blood by Pulse oximetry Systolic blood pressure Diastolic blood pressure Provider Name and Address Organization Details Last Updated DateTime 5 167.64 cm 26.5 kg/m2 93964.8 5 g 86 /min 96 % 96 % 130 mm[Hg] 88 mm[Hg] [employer] 5 11:04:10 Date Recorded Body height Body mass index (BMI) Body weight Heart rate Oxygen saturation Oxygen saturation in Arterial blood by Pulse oximetry Systolic blood pressure Diastolic blood pressure Systolic blood pressure Diastolic blood pressure Provider Name and Address Organization Details Last Updated DateTime 5 167.64 cm 26.5 kg/m2 56957.8 5 g 84 /min 97 % 97 % 142 mm[Hg] 91 mm[Hg] 133 mm[Hg] 86 mm[Hg] [employer] 5 09:15:59 Date Recorded Body height Body mass index (BMI) Body weight Heart rate Oxygen saturation Oxygen saturation in Arterial blood by Pulse oximetry Systolic blood pressure Diastolic blood pressure Provider Name and Address Organization Details Last Updated DateTime 5 167.64 cm 26 kg/m2 50240.3 7 g 73 /min 97 % 97 % 130 mm[Hg] 85 mm[Hg] [employer] 5 17:08:10 Date Recorded Body height Body mass index (BMI) Body weight Heart rate Oxygen saturation Oxygen saturation in Arterial blood by Pulse oximetry Systolic blood pressure Diastolic blood pressure Provider Name and Address Organization Details Last Updated DateTime 5 167.64 cm 25.9 kg/m2 45960.1 8 g 87 /min 92 % 92 % 133 mm[Hg] 86 mm[Hg] [employer] 5 08:08:42 Date Recorded Body height Body mass index (BMI) Body weight Heart rate Oxygen saturation Oxygen saturation in Arterial blood by Pulse oximetry Systolic blood pressure Diastolic blood pressure Systolic blood pressure Diastolic blood pressure Systolic blood pressure Diastolic blood pressure Provider Name and Address Organization Details Last Updated DateTime 4 167.64 cm 26 kg/m2 97864.3 7 g 82 /min 96 % 96 % 144 mm[Hg] 95 mm[Hg] 147 mm[Hg] 95 mm[Hg] 142 mm[Hg] 90 mm[Hg] [employer] 10:55:50 Social History Question Answer Notes LastModified by Organizat ion Details LastModified Time Tobacco Smoking Status Current Every Day Smoker Opal Sanju [employer] 06/23/2024 15:52:05 Do You Have An Advance Directive? No [email or web address] Information n ot available 06/23/2024 Is Your Home Air Conditioned? Yes [email or web address] Information not available 06/23/2024 If You Are , What Was Your Level Of Alcohol Consumption Prior To ? None [email or web address] Information not available 06/23/2024 Do You Wear A Helmet When Biking? Yes [email or web address] Information not available 06/23/2024 Are You Blind Or Do You Have Difficulty Seeing? No [email or web address] Information n ot available 06/23/2024 What Is Your Level Of Caffeine Consumption? Moderate [email or web address] Information not available 06/23/2024 What Type Of Block Engraver Do You Use? None [email or web address] Information not available 06/23/2024 In The 14 Days Before Symptom Onset, Have You Had Close Contact With A Laboratory-confirm ed COVID-19 While That Case Was Ill? No [email or web address] Information n ot available 06/23/2024 In The 14 Days Before Symptom Onset, Have You Had Close Contact With A Person Who Is Under Investigation For COVID-19 While That Person Was Ill? No [email or web address] Information not available 06/23/2024 Have You Been To An Area Known To Be High Risk For COVID-19? No [email or web address] Information not available 06/23/2024 Are You Deaf Or Do You Have Serious Difficulty Hearing? No [email or web address] Information not available 06/23/2024 What Type Of Diet Are You Following? REGULAR [email or web address] Information n ot available 06/23/2024 Have There Been Any Changes To Your Family Or Social Situation? No [email or web address] Information no t available 06/23/2024 Are There Any Guns Present In Your Home? Yes [email or web address] Information not available 06/23/2024 Which Of Your Hands Is Dominant? Right [email or web address] Information n ot available 06/23/2024 What Is Your Home Situation? Other [email or web address] Information not available 06/23/2024 Do You Have A Medical Power Of Lead Welder? No [email or web address] Information not available 06/23/2024 What Was The Date Of Your Most Recent Tobacco Screening? 03/02/2025 Information not available 03/02/2025 What Is Your Current Pack Years? [email or web address] Information not available 11/29/2024 Do You Have Any Pets? Yes [email or web address] Information not available 06/23/2024 Do You Use Protection During Sex? No [email or web address] Information not available 06/23/2024 What Is Your Relationship Status? Domestic Partner Information not available 06/23/2024 Have You Repeated Any Grades? No [email or web address] Information not available 06/23/2024 Do You Use Your Seat Belt Or Car Seat Routinely? Yes Information not available 06/23/2024 Are You Sexually Active? Yes [email or web address] Information not available 06/23/2024 Do You Have Any Siblings? Yes [email or web address] Information not available 06/23/2024 Do You Have Smoke And Carbon Monoxide Detectors In Your Home? Yes [email or web address] Information not available 06/23/2024 At What Age Did You Start Smoking Tobacco? 13 Information not available 06/23/2024 Are You Passively Exposed To Smoke? Yes [email or web address] Information no t available 06/23/2024 Are There Any Smokers In Your House? Yes [email or web address] Information not available 06/23/2024 How Much Tobacco Do You Smoke? 1 PPD [email or web address] Information not available 06/23/2024 Do You Participate In Social Media? Yes [email or web address] Information not available 06/23/2024 Do You Use Sunscreen Routinely? Yes [email or web address] Information not available 06/23/2024 Has Tobacco Cessation Counseling Been Provided? No Information not available 06/23/2024 Have You Recently Traveled Abroad? No [email or web address] Information not available 06/23/2024 Do You Have Difficulty Walking Or Climbing Stairs? No [email or web address] Information not available 06/23/2024 Are You Currently In School? No [email or web address] Information not available 07/07/2024 Do You Have Any Dietary Restrictions? No [email or web address] Information not available 06/23/2024 Sex: Female Functional Status Question Answer Note LastModified by Organizat ion Details LastModified Time Do you use any illicit or recreational drugs? No [email or web address] Information not available 06/23/2024 Do you or have you ever used any other forms of tobacco or nicotine? No [email or web address] Information not available 06/23/2024 What is your level of alcohol consumption? None [email or web address] Information not available 06/23/2024 Are you currently employed? No Information not available 06/23/2024 Do you have transportation difficulties? No Information not available 06/23/2024 Are you able to walk? [email or web address] Information not available 06/23/2024 Do you have difficulty doing errands alone? No [email or web address] Information not available 06/23/2024 Are you able to care for yourself? Yes [email or web address] Information not available 06/23/2024 Do you have difficulty dressing or bathing? No [email or web address] Information not available 06/23/2024 What is your exercise level? None [email or web address] Information not available 06/23/2024 Mental Status Question Answer Note LastModified by Organizat ion Details LastModified Time Do you feel stressed (tense, restless, nervous, or anxious, or unable to sleep at night)? [id number] [email or web address] Information not available 06/23/2024 Do you have difficulty concentrating, remembering or making decisions? No Information no t available 06/23/2024 Are you or have you been involved with bullying? No [email or web address] Information not available 06/23/2024 Family History Relationship Description Onset Age of this Age Resolved Age Notes LastModified by Organization Details LastModified Time Maternal Grandmother Malignant tumor of breast [email or web address] Not available 2023 15:52:04 Maternal Grandmother Malignant neoplasm of lung [email or web address] Not available 2023 15:52:04 Father Diabetes mellitus Not available 2023 15:52:04 Medical History Condition Response Hospitalizations N Emergency room visit since last appointm ent. N Thyroid Problems Y Headaches Y Gynecological History Statement/Question Response Abnormal Pap N Flow Heavy HPV Vaccine N Duration of Flow (days) 7 Current Control Method Menopause Age at Menarche 11 Most Recent Mammogram 07/19/2024 Age at First Child 16 If Post Menopausal, Age at Menopause 03/31 Frequency of Cycle (Q days) 28 Menses Monthly Y Date of Last Pap Smear 08/29/2022 Obstetrics History GPAL:G 0 P 0 0 0 0 Immunizations Vaccine Type Date Status Note Provider Nam e and Address Organization Details Recorded Time Tdap 07/07/2024 completed Opal hinson, [facility] [employer] 07/07/2024 11:37:36 COVID-19 vaccine, vector-nr, rS-Ad26, PF, 0.5 mL 09/28/2021 completed Pinky Muhammad NP [address] [place] [address], [address], [facility] [employer] 11/15/2024 09:36:55 Past Encounters Encounter ID Performer Location Encounter Start Date Encounter Closed Date Diagnosis/Indication Diagnosis SNOMED-CT Code Diagnosis ICD10 Code Diagnosis Note [id number] Pinky Muhammad NP [address] [address] 06/23/2024 15:28:07 06/23/2024 16:46:04 Thyroid nodule 844632479 E04.1 Hypothyroidism 42190901 E03.9 Screening for malignant neoplasm of breast 200017363 Z12.39 Cigarette smoker 0633578 7 F17.210 Elevated blood-pressure reading without diagnosis of hypertension 912961277 R03.0 [id number] iPnky Muhammad NP [address] [address] 07/07/2024 08:56:37 07/07/2024 10:19:11 Essential hypertension 08898116 I10 Thyroid nodule 178553362 E04.1 Hypothyroidism 75151210 E03.9 Hepatitis C screening 41 2430974 Z11.59 HIV screening 760147458 Z11.4 Active or passive immunization 524335600 Z23 Screening for cardiovascular system disease 446586002 Z13.6 Body mass index 25-29 - overweight 730235483 Z68.26 Nicotine dependence 5629 4008 F17.200 Diabetes m ellitus screening 345348172 Z13.1 Migraine without aura 56 376201 G43.853 [id number] Pinky Muhammad, [facility] [place] [address] 0 08/23/2024 10:46:24 08/23/2024 12:18:01 Essential hypertension 66548685 I10 Hypothyroi dism due to Betsey's thyroiditis 920243501 E06.3 Migraine without aura 56 283010 G43.009 Nicotine dependence 5629 4008 F17.200 Cigarette smoker 1349916 7 F17.761 [id number] Pinky Muhammad NP [place] [address] 0 10/04/2024 10:25:25 10/12/2024 06:45:40 Hypothyroidism 57531442 E03.9 Essential hypertension 62215188 I10 Pain of ri ght knee joint 4459545360 40397 M25.561 Nicotine dependence 5629 4008 F17.827 [id number] Pinky Muhammad NP [place] [address] 0 11/15/2024 08:55:41 11/15/2024 09:49:18 Hypothyroidism 41719522 E03.9 Nicotine dependence 5629 4008 F17.200 Hypothyroi dism due to Betsey's thyroiditis 553145011 E06.3 Cigarette smoker 4692491 7 F17.210 Essential hypertension 05884948 I10 Hypertriglyceridemia 302 549017 E78.2 [id number] Tatiana Hobbs APRN [place] [address] 0 11/29/2024 16:47:08 11/29/2024 17:22:40 Conjunctivitis 2249989 H10.9 Subconjunc tival hemorrhage of left eye 2941238226 14032 H11.32 Body mass index 25-29 - overweight 140465919 Z68.26 [id number] Pinky Muhammad NP [address] [address] 03/02/2025 07:57:32 03/02/2025 08:56:31 Overweight in adulthood with body mass index of 25 or more but less than 30 934126635 Z68.25 Hypothyroi dism due to Betsey's thyroiditis 036234939 E06.3 Thyroid nodule 632954421 E04.1 Hypertriglyceridemia 302 471362 E78.2 General ex amination of patient 026854692 Z00.00 Cigarette smoker 4524267 7 F17.210 Essential hypertension 43361516 I10 Migraine without aura 56 625397 G43.009 Screening colonoscopy 44 2644532 Z12.11 Sampling o f cervix for Papanicolaou smear 901764711 Z12.4 Seasonal a llergic rhinitis 977939806 J30.2 Snoring 72949741 R06.83 Health Concerns Section Related Observation LastModified by Organization Detai ls LastModified Time None Recorded Concern Status LastModified by Organization Details LastModified Time None Recorded Advance Directives Directive N: Payers Insurance Date Sequence Insurance Name Policy Number Policy Lawrence Covered Member ID Lawrence Member ID Guarantor Name 06/23/2024 1 [facility] [facility] (MEDICAID HMO) Promise Okolona [id number] Promise Okolona 07/30/2024 1 UNSPECIFIED REMIT PAYOR Promise Ben 06/21/2024 1 [employer] [facility] (MEDICAID HMO) Promise Ben [id number] Promise Ben 02/27/2025 1 [employer] [facility] (MEDICAID HMO) Promise Ben [id number] Promise Ben Notes Date Note Type Note Provider Name and Address Organization Details Recorded Time 4 text/html Patient presents for follow up on smoking cessation, hypothyroidism, HTN and migraines.HTN - taking medication as prescribed. Above goal. Does have some drowsiness when she takes it.Hypothyroidism - taking medication as prescribed. No concerns. Enlarged thyroid is not bothering her as much anymore - very occasionalMigraines about twice monthly but last several days at a time. States that she did start her period around the same time that she has the migraines.States the wellbutrin made her too shaky. States she could not take it. Has been using patches and has cut back from 1 ppd to 1/2 ppd. Pinky Muhammad NP [address] [place], [address], [employer] 08/23/2024 15:48:53 5 text/html Patient presents for follow up on hypothyroidism, smoking and HTN. She would also like to discuss right knee pain.Hypothyroidism - taking medication as prescribed. Swelling in neck has improvedsmoking - Still smoking right now, but working on quitting. Taking chantix without side effects, does help with the cravings. Quit date 10/24/2024.migraines - Come and go. Has tried the triptan and it works well. 2-3 per week.HTN - has not been checking blood pressure at home. Right knee - tore ligament years ago at [employer]. Last night walked a lot and then started throbbing. No new trauma. Has been a little swollen. Pinky Muhammad NP [address] [place], [address], [employer]. 10/11/2024 17:47:59 5 text/html pt here today with c/o left eye being blood shot x3 days. pt states that she took her granddaughter to the health dept on friday and by the end of the day it was blood shot. states that she thought maybe she caught pink eye. states that she has been putting eye gtts in it and it has not been getting any better. pt denies any itching, drainage, pain, redness or swelling. states that she just has some tenderness in the upper lid. on exam, pt left eye is blood shot, PERRLA, just around outer iris appears swollen. pt states that today she started having blurry vision. i am going to order pt some eye gtts and refer to eye doc maggie. Tatiana Hobbs APRN [address] [place], [address], [employer]. 11/29/2024 17:54:05 5 text/html Annual WellnessReported bypatient.Diet and Nutrition:healthy diet Fracture Risk:no history of fractures; no recent explained fracture Physical Activity:exercises on a regular basis Additional Lifestyle Factors:tobacco use Depression Risk:never feels sad, empty, or tearful; no loss of interest in activities; no agitation; no thoughts of suicide; no history of mood disorders Hearing:no loss of hearing Vision:no vision problems She is on steroid eye drops for thyroid eye disease. It has improved.She has cut back to 1/2 ppd. She admits it has been difficult.She states bp running 120's systolic.Still having migraines several times per month. States they are worse in the summer. Pinky Muhammad, RAF [address] [facility], [place], [address], [facility] [employer] 03/04/2025 11:10:02 OBGyn Episode No OBEpisode recorded.
--- OUTSIDE RECORDS SUMMARY | 2025-03-07 08:54 | XMS_ITS | Clinical Summary ---
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 Smoker 07/04/2021 Family History Medical History Relation Name Comments Breast cancer Cousin FH: breast can cer Breast cancer Maternal Grandmother FH: br east cancer Menorrhagia Other 1 FH: bladder can cer Breast cancer Other 2 FH: breast can cer Liver cancer Other 3 FH: liver cance r Lung cancer Other 4 FH: lung cancer Relation Name Status Comments Cousin Maternal Grandmother Other 1 Other 2 Other 3 Other 4 Social History Tobacco Use Types Packs/Day Years Used Date Smoking Tobacco: Every Day Smokeless Tobacco: Never Alcohol Use Standard Drinks/Week Comments Never 0 (1 standard drink = 0.6 oz pur e alcohol) Comments Unknown Sex and Gender Information Value Date Recorded Sex Assigned at Not on file Legal Sex Female 7:54 PM EDT Gender Identity Not on file Sexual Orientation Not on file Last Filed Vital Signs Vital Sign Reading Time Taken Comments Blood Pressure 119/80 07/06/2021 9:59 AM EDT Pulse 105 07/06/2021 9:59 AM EDT Temperature - - Respiratory Rate - - Oxygen Saturation - - Inhaled Oxygen Concentration - - Weight 66.8 kg (147 lb 4.3 oz) 07/06/2021 9:59 A M EDT Height 167.6 cm (5' 6 ) 07/06/2021 9:59 AM EDT Body Mass Index 23.77 07/06/2021 9:59 AM EDT Plan of Treatment Health Maintenance Due Date Last Done Comments [facility]-Depression Screening 1978 [facility]-/Child/Adol SDOH Screenings 1978 [facility]- SDOH Screenings 1996 [facility]-Adult SDOH Screenings 1996 [facility]-DTaP,Tdap,and Td Vaccine s (1 - Tdap) 1997 [facility]-Hepatitis B Vaccines (1 of 3 - 19+ 3-dose series) 1997 CT Colonography 2023 Colonoscopy 2023 FIT-DNA 2023 FIT 2023 FOBT 2023 Sigmoidoscopy 2023 [facility]-Colorectal Cancer Screening 2023 [facility]-Pap Smear 07/07/2023 07/07/2020 [id number] Vaccine (2 - 20 24-25 season) 2024 09/28/2021 [facility]-Influenza Vaccine (Seaso n Ended) 2025 [facility]-Cervical Cancer Screening 07/07/2025 [facility]-HPV/Cotest 07/07/2025 07/07/2020 [facility]-Zoster Vaccines (1 of 2) 2028 HPV Vaccines Aged Out No longer eligi ble based on patient's age to complete this topic [facility]-HIB Vaccines Aged Out No longer e ligible based on patient's age to complete this topic [facility]-Hepatitis A Vaccines Aged Out No longer eligible based on patient's age to complete this topic [facility]-IPV Vaccines Aged Out No longer e ligible based on patient's age to complete this topic [facility]-Pneumococcal Vaccine: Pediatrics (0 to 5 Years) and At-Risk Patients (6 to 49 Years) Aged Out No long er eligible based on patient's age to complete this topic [facility]-Rotavirus Vaccines Aged Out No lo nger eligible based on patient's age to complete this topic Procedures Procedure Name Priority Date/Time Associated Diagnosis Comments CYTO DATA CONVERSION Routine 07/07/2020 12:00 AM EDT from Last 3 Months or Most Recently Relevant to Health Maintenance Results * Cytology (07/07/2020 12:00 AM EDT) 07/07/2020 07/10/2020 2:4 3 PM EST Narrative GORAN - 07/12/2020 2:52 PM EST [facility] MR #: [id number] [facility] [place] [address] 1980 (Age: 40) FW Collect Date: 07/07/2020 00:00 Receipt Date: 07/10/2020 14:43 Page 1 DEPARTMENT OF PATHOLOGY AND LABORATORY MEDICINE CYTOPATHOLOGY REPORT Email: [email or web address] ATTENDING MD/Practitioner: Sachin Madrigal M.D. Service: [facility] Location: [facility] Reported: 07/12/2020 14:52 Collected: 07/07/2020 00:00 INTERPRETATION A. THIN PREP (CERVICAL/VAGINAL): NEGATIVE FOR INTRAEPITHELIAL LESION OR MALIGNANCY. SHIFT IN SIMA SUGGESTIVE OF BACTERIAL VAGINOSIS. HYPERKERATOSIS. SATISFACTORY FOR EVALUATION; ENDOCERVICAL/ TRANSFORMATION ZONE COMPONENT PRESENT. Slide scanned and imaged by [employer] Th[employer] Imaging System with manual review of all selected lindsay. Electronically Signed Out By ASHOK Souza (ASCP) ASHOK Souza (ASCP) Cervical cytology is a screening test primarily for squamous cancers and precursors and has associated false negative and positive results. New technologies such as liquid based sampling may decrease but will not eliminate all false negative results. Regular screening and follow-up of unexplained clinical signs and symptoms are recommended to minimize false negative results. Please see the ASCCP website (www.asccp.org) for followup recommendations. If HPV testing was requested, correlation with the results is suggested (please call Microbiology at [phone] for results). CLINICAL INFORMATION: Menstrual History: Cyclic Date of Last Menstrual Period: {Not Provided} Other Clinical Conditions: HPV testing requested. SPECIMEN DESCRIPTION: A: THIN PREP (CERVICAL/VAGINAL) THIN PREP PROCESS CELLULAR ENHANCEMENT ICD: F: A; RT IMAGE [id number] SNOMED CODES: A; [id number] [id number] E1002 [id number] In cases where a pathologist has signed out the report, the service has been rendered in part by a resident. The signing pathologist has performed and is responsible for the reported pathologic evaluation. Jessee Madrigal MD LAB PATHOLOGY ORDERABLES F inal Result COPATH from Last 3 Months or Most Recently Relevant to Health Maintenance Insurance [employer] MEDICAID Care Teams Briquette Maker Relationship Specialty Start Date End Date Valente Hancock MD [facility] [facility] [address] [place] [address] PCP - General 01/19/21 Faizan Santoyo MD [address] [place] [address] Referring Physician Gynecology 06/25/21
--- OUTSIDE RECORDS SUMMARY | 2025-03-07 08:54 | XMS_ITS | Continuity of Care Document ---
Author Organization [employer] [facility] Address [address] [place] [address] Assessment Encounter Date Assessment Date Assessment LastModified by Organization Details LastModified Time 03/02/2025 03/02/2025 Wellness discussed including recommended screenings, vaccines and lifestyle changes including routine exercise 30 minutes 5 times per week and a healthy diet. Labs per plan below. Colon CA screening discussed and patient chooses cologuard. No family or personal history of Colon CA. Mammogram scheduled. Referral to [facility] for pap. Recheck thyroid and ultrasound. Continue efforts for smoking cessation. RF nicotine patches. Safety reviewed. Follow up to be planned with lab results and as needed. Not available 03/04/2025 11:09:53 Plan of Treatment Reminders Order Date Submit Date Provider Last Modified By Organization Details Last Modified Time Details Appointments FOLLOW UP 30 2024 11:30A M Pinky Muhammad Not available Not available Not available Lab lipid panel, serum 2024 025 [facility] [place] [address] [place] [address], [id number], 03/03/2025 04:07:21 CMP, serum or plasma 2024 025 [facility], [address] [place] [address], [id number], 03/03/2025 04:07:20 CBC w/ auto diff 2024 025 [facility], [address] [place] [address], [id number], 03/03/2025 04:07:20 noninvasi ve colorecta l cancer DNA + occult blood screening , QL, stool 2024 025 [employer] (Cologuard Orders Only), [address], [address], [place], [address], 03/02/2025 08:43:55 TSH + free T4, serum 2024 025 [facility]), [address] [facility], [place], [address], 03/03/2025 04:07:19 Referral gynecolog ist referral - First available 2024 [email or web address] [facility] , [address], [address], [place], [address], 03/02/2025 08:56:32 Procedures None recorded. Surgeries None recorded. Imaging US, thyroid 2024 025 [facility]), [address], [place], [address], 03/02/2025 09:20:57 home sleep study 2024 025 [facility], [address] [facility] [address] [facility], [facility] [address], [place], [address], 03/04/2025 15:28:49 Medication Orders Fish Oil 1,000 mg (120 mg-180 mg) capsule 2024 025 [facility], [address] [place] [address], [address], 03/04/2025 13:25:14 cetirizin e 10 mg tablet 2024 025 [facility], [address] [place] [address], [address], 03/02/2025 17:46:19 Naprosyn 500 mg tablet 2024 025 [facility], [address] [place] [address], [address], 03/02/2025 17:46:19 hydrochlo rothiazid e 12.5 mg capsule 2024 025 [facility], [address] [place] [address], [address], 03/02/2025 17:46:20 lisinopri l 20 mg tablet 2024 025 [facility], [address] [place] [address], [address], 03/02/2025 09:23:46 nicotine 21 mg/24 hr daily transderm al patch 2024 025 [facility], [address] [place] [address], [address], 03/05/2025 09:05:35 Patient TargetsNo targets recorded. Patient InstructionsNo instructions recorded. 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 4 09:35:28 Hypothyro idism 70629603 Active 2023 Pinky Muhammad NP [address] [place], [address], [employer] 4 09:35:26 Elevated blood-pre ssure reading without diagnosis of hypertens ion 317283005 Completed 202311/15/2024 Pinky Muhammad NP [address] [place] [address], [address], [employer] 09:27:43 Essential hypertens ion 88086674 Active 2023 Pinky Muhammad NP [address] [place] [address], [address], [employer] 5 09:27:44 Nicotine dependenc e 35596897 Active 2023 Pinky Muhammad NP [address] [place] [address], [address], [employer] 09:27:49 Migraine without aura 74017012 Active 2023 Pinky Muhammad NP [address] [place] [address], [address], [employer] 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 09:27:46 Pain of right knee joint 643133728421 100 Active 2024 Pinky Muhammad NP [address] [place] [address], [address], [employer] 09:27:52 Hypertrig lyceridem ia 360141157 Active 2024 Pinky Muhammad NP [address] [place] [address], [address], [employer] 09:28:13 Seasonal allergic rhinitis 334261917 Active 2024 Pinky Muhammad NP [address] [place] [address], [address], [employer] 5 08:39:18 Snoring 84980747 Active 2024 Pinky Muhammad NP [address] [place] [address], [address], [employer] 5 08:44:12 Problem Notes None recorded. Procedures Surgical History Date Name Laterality Status Provider Name and Address Organization Details Recorded Time 07/19/20 24 Most Recent Mammogram completed [facility]. 02/14/2025 15:04:58 08/29/20 22 Date of Last Pap Smear completed [facility]. 06/23/2024 15:52:04 09/08/19 19 oophorectomy completed Pinky Muhammad NP [address] [place] [address], [address], [employer], [employer]. 06/23/2024 16:15:10 Caesarean Section completed [facility]. 06/23/2024 15:52:05 Hysterectomy completed [facility]. 06/23/2024 15:52:05 Tubal Ligation completed [facility]. 06/23/2024 15:52:05 Imaging Results None recorded. Procedure [...] and Address Organization Details Last Updated DateTime 167.64 cm 25.9 kg/m2 48496.1 8 g 87 /min 92 % 92 % 133 mm[Hg] 86 mm[Hg] Samina Tovar [employer] 08:08:42 Social History Question Answer Notes LastModified by Organizat ion Details LastModified Time Tobacco Smoking Status Current Every Day Smoker Opal Sanju hinson [employer] 06/23/2024 15:52:05 Do You Have An Advance Directive? No Information n ot available 06/23/2024 Is Your Home Air Conditioned? Yes [email or web address] Information not available 06/23/2024 If You Are , What Was Your Level Of Alcohol Consumption Prior To ? None Information not available 06/23/2024 Do You Wear A Helmet When Biking? Yes [email or web address] Information not available 06/23/2024 Are You Blind Or Do You Have Difficulty Seeing? No [email or web address] Information n ot available 06/23/2024 What Is Your Level Of Caffeine Consumption? Moderate [email or web address] Information not available 06/23/2024 What Type Of Physical Therapy Resident Do You Use? None [email or web address] Information not available 06/23/2024 In The 14 Days Before Symptom Onset, Have You Had Close Contact With A Laboratory-confirm ed COVID-19 While That Case Was Ill? No [email or web address] Information n ot available 06/23/2024 In The 14 Days Before Symptom Onset, Have You Had Close Contact With A Person Who Is Under Investigation For COVID-19 While That Person Was Ill? No Information not available 06/23/2024 Have You Been To An Area Known To Be High Risk For COVID-19? No [email or web address] Information not available 06/23/2024 Are You Deaf Or Do You Have Serious Difficulty Hearing? No Information not available 06/23/2024 What Type Of Diet Are You Following? REGULAR [email or web address] Information n ot available 06/23/2024 Have There Been Any Changes To Your Family Or Social Situation? No [email or web address] Information no t available 06/23/2024 Are There Any Guns Present In Your Home? Yes [email or web address] Information not available 06/23/2024 Which Of Your Hands Is Dominant? Right [email or web address] Information n ot available 06/23/2024 What Is Your Home Situation? Other [email or web address] Information not available 06/23/2024 Do You Have A Medical Power Of Tool Crib Supervisor? No Information not available 06/23/2024 What Was The Date Of Your Most Recent Tobacco Screening? 03/02/2025 Information not available 03/02/2025 What Is Your Current Pack Years? [email or web address] ears Information not available 11/29/2024 Do You Have Any Pets? Yes Information not available 06/23/2024 Do You Use Protection During Sex? No [email or web address] Information not available 06/23/2024 What Is Your Relationship Status? Domestic Partner [email or web address] Information not available 06/23/2024 Have You Repeated Any Grades? No [email or web address] Information not available 06/23/2024 Do You Use Your Seat Belt Or Car Seat Routinely? Yes Information not available 06/23/2024 Are You Sexually Active? Yes [email or web address] Information not available 06/23/2024 Do You Have Any Siblings? Yes [email or web address] Information not available 06/23/2024 Do You Have Smoke And Carbon Monoxide Detectors In Your Home? Yes [email or web address] Information not available 06/23/2024 At What Age Did You Start Smoking Tobacco? 13 [email or web address] Information not available 06/23/2024 Are You Passively Exposed To Smoke? Yes [email or web address] Information no t available 06/23/2024 Are There Any Smokers In Your House? Yes [email or web address] Information not available 06/23/2024 How Much Tobacco Do You Smoke? 1 PPD Information not available 06/23/2024 Do You Participate In Social Media? Yes [email or web address] Information not available 06/23/2024 Do You Use Sunscreen Routinely? Yes [email or web address] Information not available 06/23/2024 Has Tobacco Cessation Counseling Been Provided? No [email or web address] Information not available 06/23/2024 Have You Recently Traveled Abroad? No [email or web address] Information not available 06/23/2024 Do You Have Difficulty Walking Or Climbing Stairs? No [email or web address] Information not available 06/23/2024 Are You Currently In School? No [email or web address] Information not available 07/07/2024 Do You Have Any Dietary Restrictions? No [email or web address] Information not available 06/23/2024 Sex: Female Functional Status Question Answer Note LastModified by Organizat ion Details LastModified Time Do you use any illicit or recreational drugs? No [email or web address] Information not available 06/23/2024 Do you or have you ever used any other forms of tobacco or nicotine? No [email or web address] Information not available 06/23/2024 What is your level of alcohol consumption? None [email or web address] Information not available 06/23/2024 Are you currently employed? No Information not available 06/23/2024 Do you have transportation difficulties? No [email or web address] Information not available 06/23/2024 Are you able to walk? YESWOREST [email or web address] Information not available 06/23/2024 Do you have difficulty doing errands alone? No [email or web address] Information not available 06/23/2024 Are you able to care for yourself? Yes [email or web address] Information not available 06/23/2024 Do you have difficulty dressing or bathing? No Information not available 06/23/2024 What is your exercise level? None [email or web address] Information not available 06/23/2024 Mental Status Question Answer Note LastModified by Organizat ion Details LastModified Time Do you feel stressed (tense, restless, nervous, or anxious, or unable to sleep at night)? [id number] Information not available 06/23/2024 Do you have difficulty concentrating, remembering or making decisions? No [email or web address] Information no t available 06/23/2024 Are you or have you been involved with bullying? No Information not available 06/23/2024 Family History Relationship Description Onset Age of this Age Resolved Age Notes LastModified by Organization Details LastModified Time Maternal Grandmother Malignant tumor of breast [email or web address] Not available 2023 15:52:04 Maternal Grandmother Malignant neoplasm of lung [email or web address] Not available 2023 15:52:04 Father Diabetes mellitus [email or web address] Not available 2023 15:52:04 Medical History Condition [...] Recorded Time Tdap 07/07/2024 completed [facility] [employer] 07/07/2024 11:37:36 COVID-19 vaccine, vector-nr, rS-Ad26, PF, 0.5 mL 09/28/2021 completed Pinky Muhammad NP [address] [place] [address], [phone] [employer]. 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 520150036 E06.3 Thyroid nodule 918984788 E04.1 Hypertriglyceridemia 302 364465 E78.2 General ex amination of patient 765652923 Z00.00 Cigarette smoker 6883728 7 F17.210 Essential hypertension 74882063 I10 Migraine without aura 56 985103 G43.009 Screening colonoscopy 44 4095151 Z12.11 Sampling o f cervix for Papanicolaou smear 982828048 Z12.4 Seasonal a llergic rhinitis 888106825 J30.2 Snoring 96666981 R06.83 Health Concerns Section Related Observation LastModified by Organization Detai ls LastModified Time None Recorded Concern Status LastModified by Organization Details LastModified Time None Recorded Payers Encounter Date Sequence Insurance Name Policy Number Policy Lawrence Covered Member ID Lawrence Member ID Guarantor Name 03/02/2025 1 [facility] (MEDICAID HMO) Promise Contreras [id number] Promise Contreras Notes Date Note Type Note Provider Name and Address Organization Details Recorded Time 03/02/2025 text/html Annual WellnessReported bypatient.Diet and Nutrition:healthy diet [...] they are worse in the summer. Pinky Muhammad NP [address] [place] [address], [address], [facility] [employer] 03/04/2025 11:10:02 OBGyn Episode No OBEpisode recorded.
--- NOTE | 2025-03-07 09:21 | US_ITS ---
FINAL REPORT TECHNIQUE: Sonographic images of the thyroid gland were obtained in the longitudinal and transverse planes. CLINICAL HISTORY: NODULE COMPARISON: 07/12/2024 FINDINGS: The right lobe measures 5.75 cm. The right lobe is inhomogeneous. There are no focal cystic or solid nodules. The left lobe measures 4.9 cm. The left lobe is inhomogeneous. There are no cystic or solid nodules. The isthmus measures 14 mm. IMPRESSION: Diffusely heterogeneous thyroid gland, somewhat enlarged, without a definite focal nodule, consistent with a diffuse goiter. Reviewed, Interpreted and Dictated by Cesar Smith MD Transcribed by Blanca Mccormick Authenticated and [facility]
== END 2025-03-07 23:59 | disposition home or self-care (01) ==
LOC: RAD 08:52
PROVIDERS: PCP Internal Medicine Adolescent Medicine; Visit Provider Nurse Practitioner Family
DX: E04.9 Nontoxic goiter, unspecified (principal)
CPT/HCPCS: 76536

== ENCOUNTER 2025-04-13 14:20 | Outpatient (CLI) | payer OTHER, SELFPAY ==
--- OUTSIDE RECORDS SUMMARY | 2025-03-29 14:00 | XMS_ITS | Encounter Summary ---
Author Organization [facility] Address [address] [place] [address] Care Team Providers Care Personal Injury Paralegal Name Role Phone Valente Hancock MD Primary Care Provider + [phone] Reason for Visit * Reason Comments Goiter Encounter Details Date Type Department Care Team (Late st Contact Info) Description 03/29/2025 2:00 PM EDT Office Visit [facility] [address] [address] Kiko Alvarez MD [address] [address] Hypothyroidism (acquired) (Primary Dx); Goiter Social History Tobacco Use Types Packs/Day Years Used Date Smoking Tobacco: Every Day Cigarettes 1 25.6 Started: 1999 Tobacco Cessation:Ready to Q uit: Not Asked; Counseling Given: Not Answered Alcohol Use Standard Drinks/Week Comments Never 0 (1 standard drink = 0.6 oz pur e alcohol) Abuse Screen Answer Date Recorded Unsafe at Home or Work/School Not on file Feels Threatened by Someone? Not on file 08/2024 Does Anyone Keep You from Co ntacting Others or Doint Things Outside the Home? Not on file 09/19/2023 Physical Sign of Abuse Present Not on file 0 09/19/2023 Housing Stability Answer Date Recorded Current Living Arrangements Not on file 09/08 Potentially Unsafe Housing Conditions Not on darinel e 09/19/2023 Family and Community Support Answer Baljeet e Recorded Help with Day-to-Day Activities Not on file 09/19/2023 Lonely or Isolated Not on file 09/19/2023 Employment Answer Date Recorded Do you want help finding or keeping work or a monserrat b? Not on file 09/19/2023 Disabilities Answer Date Recorded Concentrating, Remembering, or Making Decisions Difficulty Not on file 09/19/2023 Doing Errands Independently Difficulty Not on fi le 09/19/2023 Education Answer Date Recorded Help with school or training? Not on file Preferred Language Not on file 09/19/2023 Comments Unknown Sex and Gender Information Value Date Recorded Sex Assigned at Not on file Legal Sex Female 7:19 PM EST Gender Identity Not on file Sexual Orientation Not on file documented as of this encounter Last Filed Vital Signs Vital Sign Reading Time Taken Comments Blood Pressure 144/88 03/29/2025 2:27 PM EDT Pulse 74 03/29/2025 2:27 PM EDT Temperature - - Respiratory Rate - - Oxygen Saturation 98% 03/29/2025 2:27 PM EDT Inhaled Oxygen Concentration - - Weight 63.4 kg (139 lb 12.8 oz) 03/29/2025 2:27 PM EDT Height 167.6 cm (5' 6 ) 03/29/2025 2:27 PM EDT Body Mass Index 22.56 03/29/2025 2:27 PM EDT documented in this encounter Progress Notes * Kiko Alvarez MD - 03/29/2025 2:43 PM EDTAssociated Problem(s): Goiter She has small goiter but no nodules. Continue observation. This may get smaller with levothyroxine treatment. We discussed indications for thyroidectomy. * Kiko Alvarez MD - 03/29/2025 2:42 PM EDTAssociated Problem(s): Hypothyroidism (acquired) She reports h/o hypothyroidism since last fall. She is on levothyroxine. Check TSH today. She is concerned about thyroid eye disease. Check TSI today. * Kiko Alvarez MD - 03/29/2025 2:00 PM EDT Images from the original note were not included. Office Note Date: 03/29/2025 Patient Name: Promise Contreras : 1980 Chief Complaint Patient presents with Goiter History of Present Illness: Promise Contreras is a 44 y.o. female who presents for Goiter She noted a lump in her neck last fall. She had neck u/s done 07/2024. She had another u/s done 02/2025. This showed heterogeneity but no discrete nodules. The thyroid was mildly enlarged. She hasn't had FNA performed. She was started on levothyroxine 06/2024. She is currently taking T4 112mcg qd. She is taking this correctly. She isn't taking any interfering meds concurrently. She c/o fatigue. She notes weight gain. She denies any other sxs of hypo- or hyperthyroidism at this time. She has noted light sensitivity. She hasn't seen manager store. Subjective Patient was born where: [place]. Facial radiation exposure: No. High iodine intake: No Family hx of thyroid disease: No. Review of Systems: Review of Systems Constitutional: Positive for fatigue and unexpected weight change. Eyes: Positive for photophobia. Respiratory: Negative. Cardiovascular: Negative. Gastrointestinal: Negative. Endocrine: Positive for polydipsia. Genitourinary: Negative. Musculoskeletal: Negative. Skin: Negative. Allergic/Immunologic: Negative. Neurological: Positive for headaches. Hematological: Negative. Psychiatric/Behavioral: Negative. The following portions of the patient's history were reviewed and updated as appropriate: allergies, current medications, past family history, past medical history, past social history, past surgicalhistory, and problem list. Objective Visit Vitals BP 144/88 (BP Location: Left arm, Patient Position: Sitting) Pulse 74 Ht 167.6 cm (66 ) Wt 63.4 kg (139 lb 12.8 oz) SpO2 98% BMI 22.56 kg/m?? Physical Exam: Physical Exam Constitutional: Appearance: Normal appearance. HENT: Head: Normocephalic and atraumatic. Eyes: Extraocular Movements: Extraocular movements intact. Conjunctiva/sclera: Conjunctivae normal. Neck: Thyroid: Thyromegaly present. No thyroid tenderness. Comments: Thyroid quite firm and enlarged ~2x normal Cardiovascular: Rate and Rhythm: Normal rate and regular rhythm. Pulses: Normal pulses. Heart sounds: Normal heart sounds. Pulmonary: Effort: Pulmonary effort is normal. Breath sounds: Normal breath sounds. Abdominal: General: Bowel sounds are normal. Palpations: Abdomen is soft. Musculoskeletal: General: Normal range of motion. Cervical back: Normal range of motion and neck supple. Lymphadenopathy: Cervical: No cervical adenopathy. Skin: General: Skin is warm. Neurological: General: No focal deficit present. Mental Status: She is alert. Psychiatric: Mood and Affect: Mood normal. Behavior: Behavior normal. Thought Content: Thought content normal. Judgment: Judgment normal. Labs: TSH No results found for: TSHBASE Free T4 No results found for: FREET4 T3 No results found for: W5OCEBL TPO No results found for: THYROIDAB TG AB No results found for: THGAB TG No results found for: THYROGLB CBC w/DIFF No results found for: WBC , RBC , HGB , HCT , MCV , MCH , MCHC , RDW , RDWSD , MPV , PLT , NEUTRORELPCT , LYMPHORELPCT , MONORELPCT , EOSRELPCT , BASORELPCT , AUTOIGPER , NEUTROABS , LYMPHSABS , MONOSABS , EOSABS , BASOSABS , AUTOIGNUM , NRBC Assessment / Plan Assessment & Plan: Diagnoses and all orders for this visit: 1. Hypothyroidism (acquired) (Primary) Assessment & Plan: She reports h/o hypothyroidism since last fall. She is on levothyroxine. Check TSH today. She is concerned about thyroid eye disease. Check TSI today. Orders: - TSH; Future 2. Goiter Assessment & Plan: She has small goiter but no nodules. Continue observation. This may get smaller with levothyroxine treatment. We discussed indications for thyroidectomy. Orders: - Thyroid Stimulating Immunoglobulin; Future Current Outpatient Medications Medication Instructions cetirizine (ZYRTEC) 10 mg, Daily hydroCHLOROthiazide (MICROZIDE) 12.5 mg, Every Morning levothyroxine (SYNTHROID, LEVOTHROID) 112 mcg, Every Can Solderer lisinopril (PRINIVIL,ZESTRIL) 20 mg, Daily naproxen (NAPROSYN) 500 mg, 2 Times Daily PRN nicotine (NICODERM CQ) 21 MG/24HR patch 1 patch, Every 24 Hours [place]-3 Fatty Acids (Fish Oil) 1000 MG capsule delayed-release 1 capsule, Daily rizatriptan TAPE RECORDER REPAIRER (MAXALT-TAPE RECORDER REPAIRER) 10 mg, Once As Needed Return in about 3 months (around 06/29/2025) for Recheck with TSH. Electronically signed by: Kiko Alvarez MD 03/29/2025 documented in this encounter Plan of Treatment Upcoming Encounters Date Type Department Care Team (Late st Contact Info) Description 07/04/2025 8:30 AM EDT Office Visit [facility] [address] [place] [phone] Katia Espinal PA-C [address] [place] [phone] 10/07/2025 9:30 AM EST Office Visit [facility] [address] [place] [phone] Katia Espinal PA-C [address] [place] [phone] 01/05/2026 9:00 AM EDT Office Visit [facility] [address] [place] [address] Kiko Alvarez MD [address] [place] [address] [place] [phone] documented as of this encounter Procedures Procedure Name Priority Date/Time Associated Diagnosis Comments THYROID STIMULATING IMMUNOGLOBULIN Routine 03/29/2025 2:47 PM EDT Goiter TSH Routine 03/29/2025 2:47 PM EDT Hypothyroidism (acquired) documented in this encounter Results * Thyroid Stimulating Immunoglobulin (03/29/2025 2:47 PM EDT) Pathologist [facility] Thyroid Stimulating Immunoglobulin <0.10 0.00 - 0.55 IU/L 04/01/2025 3:10 PM EDT [facility] Blood Structure of left upper limb / Unknown Venipuncture / Unknown 03/29/2025 2:47 PM EDT 03/29/2025 2:48 PM EDT Narrative [facility] - 04/01/2025 3:10 PM EDT Performed at: [address] [place] [id number] Cardroom Hand: Cami Palomo MD, Phone: [phone] Kiko Alvarez MD LAB BLOOD ORDERABLES Brittny l Result Performing Organization Address City/[facility]/ZIP Co de Phone Number [facility] [address] [place] [address], * TSH (03/29/2025 2:47 PM EDT) Pathologist [facility] TSH 0.871 0.270 - 4.200 uIU/mL 03/30/2025 2:54 AM EDT [facility] Blood Venipuncture / Unknown 03/29/2025 2:47 PM EDT 03/29/2025 2:48 PM EDT Kiko Alvarez MD LAB BLOOD ORDERABLES Brittny l Result [facility]
[address] [place] [address], [place] [phone] documented in this encounter Visit Diagnoses Diagnosis Hypothyroidism (acquired)- Primary Unspecified hypothyroidism Goiter Goiter, unspecified documented in this encounter Care Teams Personal Injury Paralegal Relationship Specialty Start Date End Date Valente Hancock MD [address] [place] [facility] [address] [place] [address] PCP - General Adolescent Medicine 03/29/25 documented as of this encounter
--- NOTE | 2025-04-13 14:22 | CA_ITS ---
FINAL REPORT TECHNIQUE: Multiple transverse and longitudinal images were performed of the right femoral-popliteal deep venous system with augmentation and compression maneuvers. CLINICAL HISTORY: Right Leg pain without injury FINDINGS: Right lower extremity duplex ultrasound demonstrates normal flow in the deep venous system. There is no abnormal echogenicity to suggest thrombus. There is normal compression and augmentation. IMPRESSION: No evidence of right DVT. Reviewed, Interpreted and Dictated by Cesar Smith MD Transcribed by Lu Sinha Authenticated and [facility]
--- OUTSIDE RECORDS SUMMARY | 2025-04-13 14:23 | XMS_ITS | Clinical Summary ---
Author Organization Healthcare Address [facility] [place] [address] Care Team Providers Care Pickle Pumper Name Role Phone Valente Hancock MD Primary Care Provider [phone] Faizan Santoyo MD Unavailable [phone] Allergies No known active allergies Medications [...] Cancer Screening 2023 [facility]-Pap Smear 07/07/2023 07/07/2020 [id number] Vaccine (2 - season) 2024 09/28/2021 [facility]-Influenza Vaccine (#1) 2025 [facility]-Cervical Cancer Screening 07/07/2025 [facility]-HPV/Cotest 07/07/2025 07/07/2020, 07/07/2020 [facility]-Zoster Vaccines (1 of 2) 2028 [...] (6 to 49 Years) Aged Out No longer eligible b ased on patient's age to complete this topic [...] 07/07/2020 07/10/2020 2:4 3 PM EST Narrative COPATH - 07/12/2020 2:52 PM EST [facility] MR #: [id number] [facility] [address] [place], [place] [address] 1980 (Age: 40) FW Collect Date: 07/07/2020 00:00 Receipt Date: 07/10/2020 14:43 Page 1 DEPARTMENT OF PATHOLOGY AND LABORATORY MEDICINE CYTOPATHOLOGY REPORT Email: [email or web address] [phone] ATTENDING MD/Practitioner: Sachin Madrigal M.D. Service: [facility] Location: [facility] Reported: 07/12/2020 14:52 Collected: 07/07/2020 00:00 INTERPRETATION A. THIN PREP (CERVICAL/VAGINAL): NEGATIVE FOR INTRAEPITHELIAL LESION OR MALIGNANCY. SHIFT IN SIMA SUGGESTIVE OF BACTERIAL VAGINOSIS. HYPERKERATOSIS. SATISFACTORY FOR EVALUATION; ENDOCERVICAL/ TRANSFORMATION ZONE COMPONENT PRESENT. Slide scanned and imaged by [employer] ThinPrep Imaging System with manual review of [...] results is suggested (please call Microbiology at [phone] for results). CLINICAL INFORMATION: Menstrual History: Cyclic Date of Last Menstrual Period: {Not Provided} Other Clinical Conditions: HPV testing requested. SPECIMEN DESCRIPTION: A: THIN PREP (CERVICAL/VAGINAL) THIN PREP PROCESS CELLULAR ENHANCEMENT ICD: F: A; RT IMAGE [id number] SNOMED CODES: A; [id number] In cases where a pathologist has signed out the report, the service has been rendered in part by a resident. The signing pathologist has performed and is responsible for the reported pathologic evaluation. us Jessee Madrigal MD LAB PATHOLOGY ORDERABLES F inal Result COPATH from Last 3 Months or Most Recently Relevant to Health Maintenance Insurance [employer] Care Teams Pickle Pumper Relationship Specialty Start Date End Date Valente Hancock MD [facility] [address] [place] [address] PCP - General 01/19/21 Faizan Santoyo MD [address] [place] [address] Referring Physician Gynecology 06/25/21
--- OUTSIDE RECORDS SUMMARY | 2025-04-13 14:23 | XMS_ITS | Clinical Summary ---
Author Organization [facility] Address [address] [place] [address] Care Team Providers Care Rail Detector Car Operator Name Role Phone Valente Hancock MD Primary Care Provider [phone] Allergies No known active allergies Medications [place]-3 Fatty Acids (Fish Oil) 1000 MG capsule delayed-release Take 1 capsule by mouth Daily. Active nicotine (NICODERM CQ) 21 MG/24HR patch Place 1 patch on the skin as directed by provider Daily. Active lisinopril (PRINIVIL,ZESTRIL) 20 MG tablet Take 1 tablet by mouth Daily. Active levothyroxine (SYNTHROID, LEVOTHROID) 112 MCG tablet Take 1 tablet by mouth Every Morning. Active rizatriptan HYDRAULIC CORRUGATING MACHINE OPERATOR (MAXALT-HYDRAULIC CORRUGATING MACHINE OPERATOR) [address] 1 tablet on the tongue 1 (One) Time As Needed. Active naproxen (NAPROSYN) 500 MG tablet Take 1 tablet by mouth 2 (Two) Times a Day As Needed for Headache. Active hydroCHLOROthiazide (MICROZIDE) 12.5 MG capsule Take 1 capsule by mouth Every Morning. Active cetirizine (zyrTEC) 10 MG tablet Take 1 tablet by mouth Daily. Active Active Problems Problem Noted Date Diagnosed Date Hypothyroidism (acquired) 03/29/2025 Assessment & Plan (03/29/2025 2:42 PM EDT): She reports h/o hypothyroidism since last fall. She is on levothyroxine. Check TSH today. She is concerned about thyroid eye disease. Check TSI today. Goiter 03/29/2025 Assessment & Plan (03/29/2025 2:43 PM EDT): She has small goiter but no nodules. Continue observation. This may get smaller with levothyroxine treatment. We discussed indications for thyroidectomy. Encounters Date Type Department Care Team Description 03/30/2025 Results Follow-Up [facility] [address] [facility] [address] [place] [address] Kiko Alvarez MD 03/29/2025 2:00 PM EDT Office Visit [facility] [address] [facility] [address] [place] [address] Kiko Alvarez MD Hypothyroidism (acquired) (Primary Dx); Goiter 03/29/2025 Travel from Last 3 Months Social History Tobacco Use Types Packs/Day Years [...] Mass Index 22.56 03/29/2025 2:27 PM EDT Plan of Treatment Upcoming Encounters Date Type Department Care Team (Late st Contact Info) Description 07/04/2025 8:30 AM EDT Office Visit [facility] [address] [place] [address] Katia Espinal PA-C [address] [place] [id number] 10/07/2025 9:30 AM EST Office Visit [facility] [address] [place] [address] Katia Espinal PA-C [address] [place] [phone] 01/05/2026 9:00 AM EDT Office Visit [facility] [address] [place] [address] Kiko Alvarez MD [address] [place] [address] [place] [address] Health Maintenance Due Date Last Done Comments Annual Gynecologic Pelvic and Breast Exam 1980 Pneumococcal Vaccine 0-49 (1 of 2 - PCV) 1997 PAP SMEAR 1999 MAMMOGRAM 2018 COLOGUARD 2023 COLON CANCER SCREENING 5 YEAR SIGMOIDOSCOPY 2023 COLONOSCOPY 2023 [address]AL CANCER SCREENING 2023 CT COLONOGRAPHY 2023 FECAL OCCULT BLOOD TEST 2023 FIT Testing (1 year) 2023 COVID-19 Vaccine (2 - season) 2024 ANNUAL PHYSICAL 03/29/2025 HEPATITIS C SCREENING 03/29/2025 INFLUENZA VACCINE 06/08/2025 TDAP/TD VACCINES (2 - Td or Tdap) 07/07/2034 024 Procedures Procedure Name Priority Date/Time Associated Diagnosis Comments THYROID STIMULATING IMMUNOGLOBULIN Routine 03/29/2025 2:47 PM EDT Goiter TSH Routine 03/29/2025 2:47 PM EDT Hypothyroidism (acquired) from Last 3 Months Results * Thyroid Stimulating Immunoglobulin (03/29/2025 2:47 PM EDT) Thyroid Stimulating Immunoglobulin <0.10 0.00 - 0.55 IU/L 04/01/2025 3:10 PM EDT [facility] Blood Structure of left upper limb / Unknown Venipuncture / Unknown 03/29/2025 2:47 PM EDT 03/29/2025 2:48 PM EDT Narrative [facility] - 04/01/2025 3:10 PM EDT Performed at: 01 - [address] [id number] Fiscal Officer: Cami Palomo MD, Phone: [phone] Kiko Alvarez MD LAB BLOOD ORDERABLES Brittny l Result [facility] [address] [place] [address], * TSH (03/29/2025 2:47 PM EDT) TSH 0.871 0.270 - 4.200 uIU/mL 03/30/2025 2:54 AM EDT [facility] Blood Venipuncture / Unknown 03/29/2025 2:47 PM EDT 03/29/2025 2:48 PM EDT us Kiko Alvarez MD LAB BLOOD ORDERABLES Brittny morfin Result [facility]
[address] [place] [address], from Last 3 Months Insurance [facility] Care Teams Rail Detector Car Operator Relationship Specialty Start Date End Date Valente Hancock MD [address] [facility] [address] [place] [address] PCP - General Adolescent Medicine 03/29/25
--- OUTSIDE RECORDS SUMMARY | 2025-04-13 14:23 | XMS_ITS | Encounter Summary ---
Author Organization [facility] Address [address] [place] [address] Care Team Providers Care Cabin Equipment Supervisor Name Role Phone Valente Hancock MD Primary Care Provider [phone] Encounter Details Date Type Department Care Team (Late st Contact Info) Description 03/30/2025 Results Follow-Up [facility] [address] [facility] 100 [place] [address] Kiko Alvarez MD [address] [facility] [address] [place] [address] Social History Tobacco Use Types Packs/Day Years Used Date Smoking Tobacco: Every Day Cigarettes 1 25.6 Started: 1999 Alcohol Use Standard Drinks/Week Comments Never 0 [...] on file documented as of this encounter Plan of Treatment Upcoming Encounters Date Type Department Care Team (Late st Contact Info) Description 07/04/2025 8:30 AM EDT Office Visit [facility] [address] [place] [phone] Katia Espinal PA-C [address] [phone] 10/07/2025 9:30 AM EST Office Visit [facility] [address] [place] [phone] Katia Espinal PA-C [address] [phone] 01/05/2026 9:00 AM EDT Office Visit [facility] [address] [place] [phone] Kiko Alvarez MD [address] [place] [address] [place], [place] [phone] documented as of this encounter Visit Diagnoses Not on filedocumented in this encounter Care Teams Cabin Equipment Supervisor Relationship Specialty Start Date End Date Valente Hancock MD [facility] [address] [place] [address] PCP - General Adolescent Medicine 03/29/25 documented as of this encounter
--- OUTSIDE RECORDS SUMMARY | 2025-04-13 14:23 | XMS_ITS | Encounter Summary ---
Author Organization [facility] Address [address] [place] [address] Care Team Providers Care Marine Technician Name Role Phone Valente Hancock MD Primary Care Provider [phone] Encounter Details Date Type Department Care Team (Latest Contact Info) Description 03/29/2025 Travel Social History Tobacco Use Types Packs/Day Years [...] Description 07/04/2025 8:30 AM EDT Office Visit [facility] [address] [place] [address] Katia Espinal PA-C [address] [place] [address] 10/07/2025 9:30 AM EST Office Visit [facility] [address] [place] [address] Katia Espinal PA-C [address] [facility] [address] [place] [phone] 01/05/2026 9:00 AM EDT Office Visit [facility] [address] [place] [phone] Kiko Alvarez MD [address] [facility] [address] [place], [place] [phone] documented as of this encounter Visit Diagnoses Not on filedocumented in this encounter Care Teams Marine Technician Relationship Specialty Start Date End Date Valente Hancock MD [address] [facility] [address] [place] [address] PCP - General Adolescent Medicine 03/29/25 documented as of this encounter
== END 2025-04-13 23:59 | disposition home or self-care (01) ==
LOC: RT 14:21
PROVIDERS: PCP Internal Medicine Adolescent Medicine; Visit Provider Nurse Practitioner Family
DX: M79.604 Pain in right leg (principal)
CPT/HCPCS: 93971